=== PATIENT | female | born 1950 | race Caucasian/White ===

== ENCOUNTER 2020-04-27 10:24 | Outpatient (REF) | payer MEDICARE, OTHER, SELFPAY | END 2020-04-27 10:25 | disposition home or self-care (01) | LOC: HO.LAB 10:24 | PROVIDERS: Visit Provider Internal Medicine | DX: Z20.828 Contact with and (suspected) exposure to other viral communicable diseases (principal) | CPT/HCPCS: C9803; U0003 ==

== ENCOUNTER 2025-01-10 11:15 | Emergency (ER) | payer MEDICARE, OTHER, SELFPAY ==
--- OUTSIDE RECORDS SUMMARY | 2025-01-04 23:59 | XMS_ITS | Continuity of Care Document ---
Author Organization [facility] y [address], [address] [place] [address]- Care Team Providers Care Tube Blower Name Role Phone Mikaela MARSH, Peter Primary Care Physician [place] [facility]): [place] 01/04/25 [facility] [address] [place] [address] Drive [address] [place], [place] [address] Attending Physician: Vanda Tong DO Referring Physician: Peter Al NP Encounter Type: Office Visit Allergies, Adverse Reactions, Alerts Substance Criticality Severity Reaction Reaction Severity Status amoxicillin-clavulan ate Vomiting Active diflunisal Anaphylaxis Active Dolobid difficulty breathing Active Augmentin 1 Active 1vomiting Immunizations Given and Recorded Vaccine Date Status Refusal Reason tetanus/diphtheria/pertussis, acel(Tdap) 09/15/23 Given tetanus/diphtheria/pertussis, acel(Tdap) 05/04/16 Given tetanus/diphtheria/pertussis, acel(Tdap) 07/06/13 Recorded influenza virus vaccine, inactivated 05/22/23 Give n influenza virus vaccine, inactivated 05/09/21 Jerome rded influenza virus vaccine, inactivated 02/24/20 Jerome rded influenza virus vaccine, inactivated 02/25/19 Jerome rded influenza virus vaccine, inactivated 03/23/18 Jerome rded influenza virus vaccine, inactivated 02/18/17 Jerome rded influenza virus vaccine, inactivated 03/09/16 Give n influenza virus vaccine, inactivated 03/15/15 Jerome rded influenza virus vaccine, inactivated 04/11/14 Jerome rded SARS-CoV-2 (COVID-19) mRNA BNT-162b2 vac 02/10/21 Recorded SARS-CoV-2 (COVID-19) mRNA BNT-162b2 vac 09/15/20 Recorded SARS-CoV-2 (COVID-19) mRNA BNT-162b2 vac 08/25/20 Recorded zoster vaccine, inactivated 04/17/18 Recorded zoster vaccine, inactivated 12/03/17 Recorded pneumococcal 23-valent vaccine 09/03/17 Recorded pneumococcal 13-valent vaccine 03/15/15 Recorded Medications amLODIPine 10 mg oral tablet 1 tablet = 10 mg, By Mouth, Daily, # 90 tablet, 3 Refills, Maintenance, 02/27/24 10:23:00 AM EDT, Tablet, [facility] , Partial fill upon patient request if the prescription is for a schedule II opioid drug., 160, cm, 01/28/24 10:40:00 EDT, Height, 73, kg, 10/19/23 11:48:00 EDT, Dry Weight Start Date: 02/27/24 Status: Ordered Quantity: 90.0 Unit: tablet Repeat number: 4 Bilateral Juxtafit Knee-high Compression Garments with 2 pairs of liners Bilateral Juxtafit Knee-high Compression Garments with 2 pairs of liners, See Instructions, # 1 kit, Refills 0, Tot. Refills 0, Maintenance, Dx: Lymphedema Use daily up to 23 hours per day., 09/07/23 3:16:00 PM EDT, Supply Start Date: 09/07/23 Status: Ordered Quantity: 1.0 Unit: kit Repeat number: 1 Indications: Other specified soft tissue disorders; buPROPion 300 mg/24 hours (XL) oral tablet, extended release 1 tablet = 300 mg, By Mouth, Every 24 hours, # 90 tablet, 3 Refills, Maintenance, 02/27/24 10:23:00 AM EDT, [facility] , Partial fill upon patient request if the prescription is for a schedule II opioid drug., 160, cm, 01/28/24 10:40:00 EDT, Height, 73, kg, 10/19/23 11:48:00 EDT, Dry Weight Start Date: 02/27/24 Stop Date: 02/21/25 Status: Ordered Quantity: 90.0 Unit: tablet Repeat number: 4 clonazePAM 0.5 mg oral tablet 1 tablet = 0.5 mg, By Mouth, Daily, PRN Anxiety, # 90 tablet, 1 Refills, Maintenance, 11/15/24 1:06:00 PM EDT, Tablet, [id number], Partial fill upon patient request if the prescription is for a schedule II opioid drug., 160, cm, 11/02/24 11:31:00 EDT, Height, 76.36, kg, 10/28/24 10:57:00 EDT, Dry Weight Start Date: 11/15/24 Stop Date: 05/14/25 Status: Ordered Quantity: 90.0 Unit: tablet Repeat number: 2 famotidine 40 mg oral tablet 1 tablet = 40 mg, By Mouth, 2 times a day, # 180 tablet, 3 Refills, Maintenance, 02/07/24 9:51:00 AM EDT, Tablet, [facility] , Partial fill upon patient request if the prescription is for a schedule II opioid drug., 160, cm, 01/28/24 10:40:00 EDT, Height, 73, kg, 10/19/23 11:48:00 EDT, Dry Weight Start Date: 02/07/24 Stop Date: 02/01/25 Status: Ordered Quantity: 180.0 Unit: tablet Repeat number: 4 furosemide 40 mg oral tablet 40 mg, 1, tablet, By Mouth, Daily, # 90 tablet, Refills 3, Tot. Refills 3, Maintenance, 02/07/24 9:52:00 AM EDT, Route to Pharmacy Electronically, [facility] , Partial fill upon patient request if the prescription is for a schedule II opioid drug., 160, cm, 01/28/24 10:40:00 EDT, Height, 73,kg, 10/19/23 11:48:00 EDT, Dry Weight Start Date: 02/07/24 Status: Ordered Quantity: 90.0 Unit: tablet Repeat number: 4 gabapentin 600 mg oral tablet 2 tablet = 1,200 mg, By Mouth, Daily at bedtime, # 180 tablet, 3 Refills, Maintenance, 02/27/24 10:23:00 AM EDT, [facility], 160, cm, 01/28/24 10:40:00 EDT, Height, 73, kg, 10/19/23 11:48:00EDT, Dry Weight Start Date: 02/27/24 Stop Date: 02/21/25 Status: Ordered Quantity: 180.0 Unit: tablet Repeat number: 4 metoprolol 50 mg oral tablet 50 mg, 1, tablet, By Mouth, 2 times a day, # 180 tablet, Refills 3, Tot. Refills 3, Maintenance, 10/06/24 3:14:00 PM EDT, Route to Pharmacy Electronically, [id number], Partial fill upon patient request if the prescription is for a schedule II opioid drug., 160, cm, 10/06/24 14:04:00 EDT, Height, 73.1, kg, 09/23/24 10:07:00 EDT, Dry Weight Start Date: 10/06/24 Stop Date: 10/01/25 Status: Ordered Quantity: 180.0 Unit: tablet Repeat number: 4 modafinil 200 mg oral tablet 1 tablet = 200 mg, By Mouth, 2 times a day, # 180 tablet, 3 Refills, Maintenance, 10/06/24 3:20:00 PMEDT, Tablet, [id number], Partial fill upon patient request if the prescription is for a schedule II opioid drug., 160, cm, 10/06/24 14:04:00 EDT, Height, 73.1, kg, 09/23/24 10:07:00 EDT, Dry Weight Start Date: 10/06/24 Stop Date: 10/01/25 Status: Ordered Quantity: 180.0 Unit: tablet Repeat number: 4 ondansetron 4 mg oral tablet, disintegrating 1 tablet = 4 mg, By Mouth, Daily, for 90 days, # 90 tablet, 3 Refills, Acute 01/22/25 11:15:00 AM EDT, 01/28/24 11:15:00 AM EDT, [facility], Partial fill upon patient request if the prescription is for a schedule II opioid drug., 160, cm, 01/28/24 10:40:00 EDT, Height, 73, kg, 10/19/23 11:48:00 EDT, Dry Weight Start Date: 01/28/24 Stop Date: 01/22/25 Status: Ordered Quantity: 90.0 Unit: tablet Repeat number: 4 Prolia 60 mg/mL subcutaneous solution 1 mL = 60 mg, Subcutaneous Injection, Every 6 months, # 1 mL, 0 Refills, Maintenance, 10/17/24 11:56:00 AM EDT, Solution, Partial fill upon patient request if the prescription is for a schedule II opioid drug. Start Date: 10/17/24 Stop Date: 10/17/25 Status: Ordered Quantity: 1.0 Unit: mL Repeat number: 1 rOPINIRole 1 mg oral tablet 1 tablet = 1 mg, By Mouth, Daily at bedtime, # 90 tablet, 3 Refills, Maintenance, 10/06/24 3:21:00 PMEDT, Tablet, [id number], Partial fill upon patient request if the prescription is for a schedule II opioid drug., 160, cm, 10/06/24 14:04:00 EDT, Height, 73.1, kg, 09/23/24 10:07:00 EDT, Dry Weight Start Date: 10/06/24 Stop Date: 10/01/25 Status: Ordered Quantity: 90.0 Unit: tablet Repeat number: 4 sertraline 100 mg oral tablet 2 tablet = 200 mg, By Mouth, Daily, # 180 tablet, 3 Refills, Maintenance, 12/06/23 5:44:00 PM EDT, [facility] , 160, cm, 11/19/23 10:08:00 EDT, Height, 73, kg, 10/19/23 11:48:00 EDT, Dry Weight Start Date: 12/06/23 Stop Date: 11/30/24 Status: Ordered Quantity: 180.0 Unit: tablet Repeat number: 4 valsartan 80 mg oral tablet 80 mg, 1, tablet, By Mouth, Daily, # 90 tablet, Refills 3, Tot. Refills 3, Maintenance, 05/04/24 12:02:00 PM EST, Route to Pharmacy Electronically, [facility] #[id number], Partial fill upon patient request if the prescription is for a schedule II opioid drug., 160, cm, 05/04/24 10:41:00 EST, Height, 73, kg, 10/19/23 11:48:00 EDT, Dry Weight Start Date: 05/04/24 Stop Date: 04/29/25 Status: Ordered Quantity: 90.0 Unit: tablet Repeat number: 4 Vitamin D3 5000 intl units oral tablet 1 tablet = 5,000 International_Units, By Mouth, Daily, # 60 tablet, 0 Refills, Maintenance, 10/18/2509:04:00 AM EDT, Tablet, [facility] #[id number], Partial fill upon patient request if the prescription is for a schedule II opioid drug., 160, cm, 10/17/24 14:52:00 EDT, Height, 77.1, kg, 10/11/24 13:13:00 EDT, Dry Weight Start Date: 10/18/24 Stop Date: 12/17/24 Status: Ordered Quantity: 60.0 Unit: tablet Repeat number: 1 Problem List Condition Confirmation Course Effective Dates Status Health St atus Informant Hyperplastic colonic polyp 1 Confirmed 03/06/19 Active Chronic kidney disease, stage 3a 2 Confirmed Active CAD in [place] artery Confirmed Active GERD (gastroesophageal reflux disease) Confirmed Active RANDY (generalized anxiety disorder) Confirmed Active Hx of non-ST elevation myocardial infarction (NSTEMI) Confirmed Active HTN (hypertension) Confirmed Active Inclusion body myositis Confirmed Active Interstitial lung syndrome Confirmed Active 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 Confirmed Active RAINA (obstructive sleep apnea) Confirmed Active Restless leg syndrome Confirmed Active Leg swelling Confirmed Active 1repeat screening colonoscopy in 2028 2Per chart review meeting GFR criteria Social History Social History Type Response Smoking Status Former smoker; Other : Quit 1993 without relapse; entered on: 02/26/16 Sex Sex Representation Female (finding) Patient Care team information Care Team Personnel Name: Salomon Kathleen Position: [facility] Onco RN Member Role: Primary Care Nurse Name: Lila Chowdhury RN Position: [facility] AMB Nurse Member Role: Primary Care Nurse Name: Sakina Solis RN Position: [facility] RN Member Role: Primary Care Nurse Name: Veronica Christopher RN Position: [facility] RN Member Role: Primary Care Nurse Name: Cecily Farfan RN Position: [facility] RN Member Role: Primary Care Nurse Name: Christina Castañeda RN Position: [facility] RN Member Role: Primary Care Nurse Name: Una Calvo Position: [facility] Outreach Member Role: Lifetime Consulting Physician Name: Liz Howell RN Position: [facility] SN RN Member Role: Primary Care Nurse Name: Amrit Pressley RN Position: [facility] RN Member Role: Primary Care Nurse Name: Radhika Pritchett RN Position: [facility] RN Member Role: Primary Care Nurse Name: Georgette Wilcox RN Position: [facility] Hospital Die Mounter Member Role: Primary Care Nurse Name: Peter Al NP Position: [facility] PCO Associate Professional Member Role: PCP Address: [address] [place] [address] Primary Care [place], [place] [address] Telecom: Name: Mariaelena Lopez RN Position: [facility] AMB Nurse Member Role: Primary Care Nurse Name: Ky Mackay RN Position: [facility] SN RN Member Role: Primary Care Nurse Name: Nancy Lerma RN Position: [facility] RN Member Role: Primary Care Nurse Name: Ellen Enriquez RN Position: [facility] Onco RN Member Role: Primary Care Nurse Name: Nora Monk RN Position: [facility] RN Member Role: Primary Care Nurse Name: Josué Winn RN Position: [facility] SN RN Member Role: Primary Care Nurse Name: Janet Oliva RN Position: [facility] AMB Nurse Member Role: Primary Care Nurse Name: Antoinette Leyva RN Position: [facility] RN Member Role: Primary Care Nurse Name: Antoinette Albright RN Position: [facility] RN Member Role: Primary Care Nurse Care Team Related Persons Name: AUSTIN BAGLEY Name: FELYMARCOSJOVITA Name: REYES JOAQUIN Insurance Providers Guarantor name: SALOMON SCHMID Health Plan Information #: 1 Payer: MEDICARE B Payer Identifier: NA Member Number: [id number] Group Number: NA Subscriber Identifier: [id number] Relationship to Subscriber: self Coverage Type: NA Coverage Verification Date: NA Telecom: NA Address: Health Plan Information #: 2 Payer: [facility] Payer Identifier: Member Number: [id number] Group Number: Subscriber Identifier: [id number] Relationship to Subscriber: self Coverage Type: [employer] [place] () Coverage Verification Date: NA Telecom: NA Address: NA
--- NOTE | ~2025-01-10 | CT_ITS ---
EXAMINATION: CT ABDOMEN PELVIS WITH IV CONTRAST HISTORY: lower abd pain COMPARISON: There are no prior studies for available comparison. TECHNIQUE: CT scan of the abdomen and pelvis was performed following administration of 85 mL Omnipaque 350 using standard departmental protocol. Coronal and sagittal reformatted images were generated and reviewed. Oral contrast material was not administered at the request of the referring physician. This CT exam was performed with one or more of the following dose reduction techniques: automated exposure control, adjustment of the mA and/or kV according to patient size, use of iterative reconstruction technique. DLP: 557 mGy-cm FINDINGS: LOWER CHEST: There is mild dependent atelectasis at the lung bases. There is no pleural effusion. CARDIOVASCULATURE: The heart is normal in size. There is no pericardial effusion. LIVER: The liver is normal in size and contour. No liver mass is identified. The hepatic and portal veins are patent. GALLBLADDER / BILE DUCTS: The gallbladder is unremarkable. There is no intra or extrahepatic biliary ductal dilatation. SPLEEN: The spleen is enlarged. No focal splenic lesion is identified. PANCREAS: The pancreas is unremarkable in appearance. ADRENAL GLANDS: Within normal limits. KIDNEYS/RETROPERITONEUM: No renal calculi are identified. There is no hydronephrosis. No renal masses are identified. LYMPH NODES: No abdominal or pelvic lymphadenopathy. VASCULATURE: The abdominal aorta demonstrates atherosclerotic calcification, but is normal in caliber. MESENTERY/PERITONEUM: No free fluid. No masses. There is no free intraperitoneal gas. STOMACH: There is a small to moderate hiatal hernia. The remainder of the stomach is collapsed. SMALL BOWEL: The small bowel is normal in caliber. COLON: There is diverticulosis and moderate wall thickening of the sigmoid colon. No definite pericolonic inflammatory stranding is seen to suggest diverticulitis. APPENDIX: The appendix is not seen, however no inflammatory changes are seen adjacent to the cecum. URINARY BLADDER/PELVIC ORGANS: The urinary bladder is unremarkable. The uterus is unremarkable. BONES / SOFT TISSUES: There is a mild compression deformity of L1 which is likely chronic. CT/CT abdomen pelvis w IV con IMPRESSION: 1. Sigmoid diverticulosis and moderate wall thickening without definite evidence of diverticulitis. An underlying mass is not excluded. Sigmoidoscopy is suggested if this has not recently been performed. 2. Small to moderate hiatal hernia. 3. Splenomegaly. Electronically signed by: Ziggy Fowler MD 01/10/2025 03:15 PM EDT RP
[2025-01-10 11:38] VITALS: BP 206/79; PULSE 56; RESP 16; TEMP 36.1; O2SAT 96
--- NOTE | 2025-01-10 11:38 | ED.ABDPAIN ---
HPI - Abdominal Pain General Chief Complaint: Abdominal Pain Stated Complaint: Abd pain Time Seen by Provider: 01/10/25 13:35 Source: patient and old records reviewed Mode of arrival: ambulatory Limitations: no limitations History of Present Illness ED Provider: KAMARI IZAGUIRRE narrative: 74 yo female with PMH of umbilical hernia repair, inclusion body myositis, HTN here with c/o 3 days of bloating, decreased appetite, waves of pain in lower abdomen and smaller size stool. No fevers, no GIB symptoms. She cannot remember the last time she had a colonoscopy. She states she has passed gas. No change in meds or diet. She has never had this before. MD elicited complaint: abdominal pain Pertinent past history: none Onset (ago): day(s) (3) Pain Consistency: intermittent Location: suprapubic and pelvis Severity: moderate Quality: cramping and aching Radiation: none Migration to: no migration Exacerbating factors: eating Relieving factors: nothing Associated symptoms: nausea and constipation Related Data Previous Rx's ?Medication ?Instructions ?Recorded hydrocodone 5 mg-acetaminophen 325 1 tab PO Q6H PRN pain #10 tabs 01/10/25 mg tablet levofloxacin 750 mg tablet 750 mg PO DAILY #10 tabs 01/10/25 metronidazole 500 mg tablet 500 mg PO BID #10 tabs 01/10/25 Allergies Allergy/AdvReac Type Severity Reaction Status Date / Time amoxicillin (From Augmentin) Allergy Mild Vomiting Verified 01/10/25 11:43 clavulanic acid (From Allergy Mild Vomiting Verified 01/10/25 11:43 Augmentin) Review of Systems Review of Systems Constitutional : No Weight loss, No Fever, No Chills ENT/Mouth : No sore throat, No Rhinorrhea Eyes: No Swelling, No Redness Cardiovascular : No Chest Pain, No SOB, NoEdema Respiratory : No Cough, No Sputum, No Wheezing Gastrointestinal : Positive Nausea, no Vomiting, no Diarrhea, positive abdominal Pain, No Hematochezia, No Melena Genitourinary : No Dysuria, No Urinary Frequency, No Hematuria, No Urgency Musculoskeletal : No joint pain, No Myalgias, No Joint Swelling Skin : No Skin Lesions, No rash Neuro : No Weakness, No Numbness, No Dizziness, No Headache All other systems reviewed and are negative. [facility] Past Medical History Attestation statement: The following information was validated with the patient. Source: old records reviewed Medical History HTN (hypertension) IBM (inclusion body myositis) Social History Social History (Updated 01/10/25 @ 13:57 by Tania Arrieta DO) Alcohol intake: current Alcohol intake frequency: a few times a month Patient Tobacco Use Status: Tobacco use Unknown Smoked in Last 30 Days: No Use of substances other than those prescribed or required for medical reasons: No Advance Directives: Yes Advance Directives Information Provided: Yes Advance Directives on File: No Physical Exam ED Vital Signs: Vital Signs - 24 hr 01/10/25 11:38 01/10/25 14:23 Temperature 97 F Pulse Rate 56 50 Respiratory Rate 16 18 Blood Pressure 206/79 H 137/43 L Pulse Oximetry 96 96 Oxygen Delivery Method Room Air Room Air BMI result Body Mass Index 30.0 Appearance: Alert. Oriented X3. No acute distress. Eyes: Pupils equal, round and reactive to light. ENT: Pharynx normal. Neck: Normal inspection. Neck supple. CVS: Normal heart rate and rhythm. Pulses normal. Respiratory: No respiratory distress. Breath sounds normal. Abdomen: soft but appears distended she has lower abd ttp bilaterally but no rebound or guarding Skin: Skin warm and dry. Normal skin color. Normal skin turgor. Extremities: No lower extremity edema. No calf ttp Neuro: Oriented X 3. No motor deficit. No sensory deficit. CN2-12 intact Course Course Course Narrative: This is a Rapid Medical Examination (RME) performed by Ailyn Eckert PA-C in triage. Full HPI, ROS, assessment and treatment plan per primary provider in the Main ED. 74 yo female with history of inclusion body myositis (IBM), HTN, depression who presents to the ER for evaluation of 3 days of lower abdominal pain and cramping. Relieved with BMs but only having small BMs. reports decreased UOP. poor appetite. no vomiting, chest pain, sob or fevers. her weakness is chronic and unchanged, hx multiple falls, not on anticoagulation. abx exam soft with left sided fullness, no RLQ or LLQ tenderness. +BS x4 Plan: labs, UA, imaging per primary provider Reevaluation(s) Reevaluation #1: urinated and didn't give urine sample denies odor, dysuria, frequency Medical Decision Making Medical Decision Making MDM Narrative: 74 yo female with PMH of umbilical hernia repair, inclusion body myositis, HTN here with c/o lower abdominal pain with poor appetite at this time will need labs, UA, CT scan for mass/diverticular ds/obstruction. Differential Diagnosis Differential Diagnoses: The differential diagnosis associated with the presentation includes mass/diverticular ds/obstruction. Admission/Observation Consideration of admission/observation: Escalation of care including admission/observation considered labs reassuring, VS stable, no vomiting here able to tolerate PO can trial oral abx and pain control and refer to PCP for GI work up given her abnormal CT scan findings. Lab Data [facility] Lab Attestation statement: I reviewed the patient's lab results. 01/10/25 11:50 01/10/25 11:50 Labs: Lab Results 01/10/25 Range/Units 11:50 WBC 7.8 (4.8-10.8) X10*3/uL RBC 3.98 L (4.20-5.50) X10*6/uL Hgb 12.2 (12.0-16.0) g/dl Hct 35.5 L (37.0-47.0) % MCV 89.2 (80.0-98.0) fL MCH 30.7 (27.0-33.0) pg MCHC 34.4 (31.0-35.0) g/dl RDW 12.2 (11.0-16.0) % Plt Count 166 (160-400) X10*3/uL MPV 9.1 L (9.4-12.3) fL Immature Gran % (Auto) 0.4 (0.0-0.4) % Neut % (Auto) 70.9 (45-73) % Lymph % (Auto) 17.4 L (20-40) % Fountain % (Auto) 9.3 (2-11) % Eos % (Auto) 1.7 (0-4) % Baso % (Auto) 0.3 (0-2) % Lymph # (Auto) 1.4 (1.2-4.9) X10*3/uL Fountain # (Auto) 0.7 (0.1-1.2) X10*3/uL Eos # (Auto) 0.1 (0.0-0.4) X10*3/uL Baso # (Auto) 0.0 (0.0-0.2) X10*3/uL Abs Immat Gran (auto) 0.03 (0.00-0.03) X10*3/uL Absolute Neuts (auto) 5.5 (2.0-8.3) x10*3/uL Absolute Nucleated RBC 0.000 (0.0-0.012) X10*3/uL Nucleated RBC % (auto) 0.0 (0.0-0.2) /100WBC Sodium 134 L (135-145) mmol/L Potassium 4.6 (3.3-5.1) mmol/L Chloride 101 (96-108) mmol/L Carbon Dioxide 26 (22-29) mmol/L Anion Gap 12 (12-20) BUN 16 (9-16) mg/dL Creatinine 0.62 (0.5-1.4) mg/dL Estim Creat Clear Calc 81.1 Estimated GFR > 60 Random Glucose 109 (60-115) mg/dL Calcium 8.4 (8.4-10.2) mg/dL Magnesium 2.5 (1.6-2.6) mg/dL Total Bilirubin 0.6 (0.0-1.0) mg/dL Direct Bilirubin 0.2 (0.0-0.5) mg/dL AST 55 H (5-31) U/L ALT 76 H (0-31) U/L Alkaline Phosphatase 81 (39-117) U/L Total Protein 6.4 L (6.5-8.0) g/dL Albumin 4.3 (3.5-5.0) g/dL Independent Interpretation I performed an independent interpretation of an: CT Scan (inflammation near sigmoid colon) Radiology Impression Discussion of test interpretation with radiology: I have reviewed the radiologist's reading. External Record Review External record reviewed: Outpatient record Prescription Management I considered prescription management with: Pain Medication, Antibiotic and Other Medications Administered Discontinued Medications Generic Name Dose Route Start Last Admin Trade Name Freq PRN Reason Stop Dose Admin Iohexol 100 ml 01/10/25 15:07 01/10/25 15:08 Iohexol 350 Mg/Ml 100 Ml Infus..Btl IV 01/10/25 15:08 85 ml ONCE ONE Administration Morphine Sulfate 4 mg 01/10/25 13:35 01/10/25 13:48 Morphine Sulfate 4 Mg/Ml Cartridge IVPUSH 01/10/25 13:36 4 mg ONCE ONE Administration Protocol Ondansetron HCl 4 mg 01/10/25 13:35 01/10/25 13:49 Ondansetron Hcl 4 Mg/2 Ml Vial IVPUSH 01/10/25 13:36 4 mg ONCE ONE Administration Critical Care Time Critical Care Time Critical Care Time: Yes Total Critical Care Time: 35 Attestation: IV morphine for pain with improvement in symptoms, review of records, review of labs and CT scan, repeat assessments I attest to this time spent taking care of the patient Discharge Plan Discharge Clinical Impression: Abdominal pain Patient Disposition: Home, Self-Care Instructions: Abdominal Pain (ED) Additional Instructions: your labs are reassuring your CT Scan shows inflammation near the sigmoid colon we will treat with antibiotics and pain control return for worsening pain, fevers, unable to eat or drink, bloody stools or any other concerns while on the antibiotic monitor for any signs of tendon pain limit exercising flagyl needs to be taken with food and avoid alcohol you need to see a GI doctor to make sure there is no underlying mass. CT/CT abdomen pelvis w IV con IMPRESSION: 1. Sigmoid diverticulosis and moderate wall thickening without definite evidence of diverticulitis. An underlying mass is not excluded. Sigmoidoscopy is suggested if this has not recently been performed. 2. Small to moderate hiatal hernia. 3. Splenomegaly. Prescriptions: New metronidazole 500 mg tablet 500 mg PO BID Qty: 10 0RF hydrocodone-acetaminophen 5-325 mg tablet 1 tab PO Q6H PRN (Reason: pain) Qty: 10 0RF Rx Instructions: partial fill okay; Partial Fill upon patient request. levofloxacin 750 mg tablet 750 mg PO DAILY Qty: 10 0RF Referrals: [facility] [Provider Group, Gastroenterology] Referral Note: call to schedule Print Language: Kazakh
[2025-01-10 12:02] LABS: MANUAL DIFF FLAG NO
[2025-01-10 12:03] LABS: Hematocrit 35.5 % (37.0-47.0); Hemoglobin 12.2 g/dl (12.0-16.0); Imm Gran Abs Auto 0.03 X10*3/uL (0.00-0.03); Imm Gran Pct Auto 0.4 % (0.0-0.4); Lymphocytes Absolute Auto 1.4 X10*3/uL (1.2-4.9); Mean Corpuscular HGB Conc 34.4 g/dl (31.0-35.0); Mean Corpuscular Hemoglobin 30.7 pg (27.0-33.0); Mean Corpuscular Volume 89.2 fL (80.0-98.0); NRBC Abs Auto 0.000 X10*3/uL (0.0-0.012); NRBC Pct Auto 0.0 /100WBC (0.0-0.2); Platelet Count 166 X10*3/uL (160-400); Red Blood Count 3.98 X10*6/uL (4.20-5.50); White Blood Count 7.8 X10*3/uL (4.8-10.8)
[2025-01-10 12:22] LABS: Alanine Aminotransferase 76 U/L (0-31); Albumin Level 4.3 g/dL (3.5-5.0); Alkaline Phosphatase 81 U/L (39-117); Anion Gap 12 (12-20); Aspartate Amino Transferase 55 U/L (5-31); Blood Urea Nitrogen 16 mg/dL (9-16); Calcium 8.4 mg/dL (8.4-10.2); Carbon Dioxide 26 mmol/L (22-29); Chloride 101 mmol/L (96-108); Creatinine Clr Calc Pharmacy 81.1; Estimated Glomerular Filt Rate > 60; Magnesium 2.5 mg/dL (1.6-2.6); Potassium 4.6 mmol/L (3.3-5.1); Sodium 134 mmol/L (135-145); Total Protein 6.4 g/dL (6.5-8.0)
[2025-01-10 14:23] VITALS: BP 137/43; PULSE 50; RESP 18; O2SAT 96
--- OUTSIDE RECORDS SUMMARY | 2025-01-10 14:52 | XMS_ITS | Clinical Summary ---
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 Active pantoprazole (PROTONIX) 40 MG tablet Take 40 mg by mouth daily. Active risperiDONE (RISPERDAL) 0.25 MG tablet Take 0.25 mg by mouth 2 (two) times a day. Active memantine (NAMENDA) 10 MG tablet Take 10 mg by mouth 2 (two) times a day. Active methotrexate 15 MG tablet Take 15 mg by mouth once a week. Active predniSONE (DELTASONE) 5 MG tabletIndicatio ns:taking 1.5 tablets (7.5 mg) by mouth daily Take 5 mg by mouth daily with breakfast. Indications: taking 1.5 tablets (7.5 mg) by mouth daily Active metoprolol tartrate (LOPRESSOR) 50 MG tablet Take 50 mg by mouth 2 (two) times a day. Active sertraline (ZOLOFT) 50 MG tablet Take 100 mg by mouth daily. Active aspirin 81 MG EC tablet Take 81 mg by mouth daily. Active folic acid (FOLVITE) 1 MG tablet Take 1 mg by mouth daily. Active gabapentin (NEURONTIN) 600 MG tablet Take 600 mg by mouth daily. Active hydroCHLOROthia zide (MICROZIDE) 12.5 mg capsule Take 12.5 mg by mouth daily. Active calcium carbonate 500 mg (200 mg elemental) chewable tablet Take 1 tablet by mouth daily. Active nitroglycerin (NITROSTAT) 0.[address] 0.4 mg under the tongue every 5 (five) minutes as needed for chest pain. Active ALPRAZolam (XANAX) 0.25 MG tablet Take 0.25 mg by mouth nightly at bedtime as needed for sleep. Active butalbital-acet aminophen-caffe ine (FIORICET, ESGIC) 50-325-40 mg per tablet Take 1 tablet by mouth every 4 (four) hours as needed for pain (specific location in comments). Active ketorolac (ACULAR LS) 0.4 % Drop Place 1 drop into each eye 4 (four) times a day. Active ofloxacin (FLOXIN) 0.3 % otic solution 5 drops by Each Ear route daily. Active sulfacetamide-p rednisoLONE (BLEPHAMIDE) ophthalmic ointment Place 0.5 inches into each eye 4 (four) times a day. Active rOPINIRole (REQUIP XL) 2 MG 24 hr tablet Take 2 mg by mouth nightly at bedtime. Active amLODIPine (NORVASC) 10 MG tablet Take 10 mg by mouth. 01/31/2022 Active losartan (COZAAR) 100 MG tablet Take 100 mg by mouth. 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 Not on tila e 10/19/2022 Are you concerned about learning? Not on file 10/19/2022 No 10/19/2022 No 10/19/2022 Digital Access Answer Date Recorded No 11/02/2022 No 11/02/2022 Reliable internet access at home? Not on file 11/02/2022 Device with a working camera? Not on file Comments Unknown Sex and Gender Information Value Date Recorded Sex Assigned at Not on file Legal Sex Female 5:09 PM EST Gender Identity Not on file Sexual Orientation Not on file Last Filed Vital Signs Vital Sign Reading Time Taken Comments Blood Pressure 182/76 07/20/2023 3:38 PM EST Pulse 59 07/20/2023 3:38 PM EST Temperature 36.4 C (97.6 F) 07/20/2023 3:37 PM EST Respiratory Rate 16 07/20/2023 3:37 PM EST Oxygen Saturation 94% 07/20/2023 3:38 PM EST Inhaled Oxygen Concentration - - Weight 73.9 kg (163 lb) 07/20/2023 3:37 PM EST Height 160 cm (5' 2.99 ) 07/20/2023 3:37 PM EST Body Mass Index 28.88 07/20/2023 3:37 PM EST Plan of Treatment Health Maintenance Due Date Last Done Comments CREATININE LEVEL 1950 LIPID PANEL 1950 POTASSIUM LEVEL 1950 SMOKING Hx and SMOKELESS TOBACCO SCREENING 1963 HEPATITIS C SCREENING 01/16/1968 MAMMOGRAM 1990 COLOGUARD 1995 COLONOSCOPY 1995 COLORECTAL CANCER SCREENING 1995 FIT TEST 1995 FOBT 1995 SIGMOIDOSCOPY 1995 VIRTUAL COLONOSCOPY 1995 RSV VACCINE (1 - Risk 60-74 years 1-dose series) 2010 OSTEOPOROSIS SCREENING INITI AL (ONE-TIME) 2015 DEPRESSION SCREENING 12/24/2023 12/23/2022 COVID-19 VACCINE (4 - 2023-2 5 season) 2024 02/10/2021, 09/15/2020, 08/25/2020 Adult Td,Tdap Booster 05/04/2026 05/04/2016 , 07/06/2013 PNEUMOCOCCAL VACCINES (50+ years) Completed 09/03/2017, 03/15/2015 ZOSTER VACCINES Completed 04/17/2018, 12/03/2017 HEPATITIS A VACCINES Aged Out No long er eligible based on patient's age to complete this topic HIB VACCINES Aged Out No longer eligi ble based on patient's age to complete this topic MENINGOCOCCAL VACCINES (ACWY) Aged Out No longer eligible based on patient's age to complete this topic MENINGOCOCCAL VACCINES (B) Aged Out N o longer eligible based on patient's age to complete this topic Medical Devices Not on file Insurance MEDICARE PART A & B [facility] Address: [facility] ATTN:[facility] [address] [address] [place] [address] MEDICARE PART A & B [facility] [address] MEDICARE PART A & B [facility] Address: [facility] ATTN:[facility] CLAIMS [id number] [place] [phone] MEDICARE PART A & B [facility] [address] MEDICARE PART A & B [facility] Address[facility] ATTN:[facility] CLAIMS [address] [address] [place] [address] MEDICARE PART A & B [facility] [address] MEDICARE PART A & B [facility] [address] MEDICARE PART A & B [facility] [address] MEDICARE PART A & B [facility] [address] Care Teams Photoengraving Machine Operator/Tender Relationship Specialty Start Date End Date Peter Al NP [address] [place] [id number] PCP - General Nurse Practitioner 08/27/22 Additional Source Comments The information contained in this document represents components of the legal health record. It is not the complete legal health record.[facility]
--- OUTSIDE RECORDS SUMMARY | 2025-01-10 14:52 | XMS_ITS | Clinical Summary ---
Author Organization [facility] it Address [address] [place] [address] Care Team Providers Care Highway Maintenance Supervisor Name Role Phone Bonny Vernonharshal Primary Care Provider [phone] Allergies Active Allergy Reactions Criticality Noted Date Comments Amoxicillin-Pot Clavulanate 11/20/19 23 vomiting Diflunisal Swelling,Wheezing 07/06/2013 Throat swelled Medications triamcinolone (KENALOG) 0.1 % cream APPLY THIN LAYER TOPICALLY TO THE AFFECTED AREA TWICE DAILY 3 Active metoprolol tartrate (LOPRESSOR) 50 mg tablet Take 1 Tablet by mouth. 6 Active methylPREDNISolone (MEDROL) 8 mg tablet TAKE 6 TABLET BY MOUTH EVERY DAY 3 Active methocarbamoL (ROBAXIN) 750 mg tablet TAKE 2 TABLETS BY MOUTH THREE TIMES DAILY FOR 7 DAYS 3 Active furosemide (LASIX) 40 mg tablet Take 1 tablet (40 mg total) by mouth 1 (one) time each day. Active modafiniL (PROVIGIL) 200 mg tablet Take 200 mg by mouth daily. Active gabapentin (NEURONTIN) 600 mg tablet TAKE 2 TABLETS BY MOUTH AT BEDTIME FOR RESTLESS LEG SYNDROME 2 Active famotidine (PEPCID) 20 mg tablet Take 1 tablet (20 mg total) by mouth 2 (two) times a day. 2 Active cetirizine (ZyrTEC) 10 mg tablet Take 1 tablet (10 mg total) by mouth 1 (one) time each day. 1 Active butalbital-acetami nophen-caffeine (FIORICET, ESGIC) 50-325-40 mg per tablet Take 1 tablet by mouth every 4 hours as needed for Pain. 1 Active sertraline (ZOLOFT) 100 mg tablet 2 po qam 1 Active clonazePAM (KlonoPIN) 0.5 mg tablet 1/2-1 po bid prn anxiety or insomnia 1 Active pantoprazole (PROTONIX) 20 mg EC tablet Take 1 tablet (20 mg total) by mouth 1 (one) time each day. 1 Active methotrexate, PF, 22.5 mg/0.45 mL auto-injector Inject into the skin. Active rOPINIRole (REQUIP) 0.25 mg tablet Take 0.25 mg by mouth 3 times daily. Active amLODIPine (NORVASC) 10 mg tablet Take 10 mg by mouth daily. Active losartan (COZAAR) 50 mg tablet 100 mg. 0 Active ondansetron ODT (ZOFRAN-ODT) 4 mg disintegrating tablet Take 1-2 Tabs by mouth every 8 hours as needed for Nausea for up to 7 days. 0 Active folic acid (FOLVITE) 1 mg tablet Take 1 tablet (1,000 mcg total) by mouth 1 (one) time each day. 9 Active docusate sodium (COLACE) 100 mg tablet Take by mouth. Active nitroglycerin (NITROSTAT) 0.[address] 1 Tab under the tongue every 5 minutes as needed for Chest pain. 9 Active reservoir inhalation (INSPIREASE) device For use with inhalers 8 Active halobetasol (ULTRAVATE) 0.05 % ointment Apply daily or twice daily, to elbows and knees when needed. Goal for on weekends only. Not to face or skin folds 6 Active metoprolol succinate (TOPROL-XL) 50 mg 24 hr tablet Take 1 tablet (50 mg total) by mouth 2 (two) times a day. 6 Active aspirin 81 mg EC tablet Take 81 mg by mouth daily. Active calcium carbonate-vitamin D 500 mg-5 mcg (200 unit) per tablet Take 1 tablet by mouth 2 times daily (with meals). 6 Active MULTIVITAMIN ORAL Take by mouth. Active ascorbic acid (VITAMIN C) 500 mg tablet Take 500 mg by mouth daily. 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 CPKs elevated in 600-800 range. Lower extremity weakness. Pravastatin discontinued May 2018. EMG showed myopathic process. Muscle biopsy 06/26: Right rectus femoris muscle showed segmental degeneration and regeneration. Focal mononuclear cells were seen. No inclusion bodies. Prednisone started 07/27. 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 Overview (07/11/2024): Seen on CT of abdomen 10/31/08 and 02/07/09, with nonspecific shotty mesenteric lymph nodes Hiatal hernia 08/22/2013 Overview (07/11/2024): Mild, seen on abd CT 10/2008 Maxillary sinus cyst 08/22/2013 Overview (07/11/2024): 1.4 cm left, on MRI Hypercholesteremia 07/06/2013 Hypertension 07/06/2013 Migraine headache 07/06/2013 Overview (07/11/2024): MRI 05/30/09 Small vessel angiopathy bilateral frontal region, Mitral regurgitation and aortic stenosis 014 Overview (07/11/2024): Mild to mod MR , mild AR on echo 07/10/10, EF 62% Osteopenia 07/06/2013 Psoriasis 07/06/2013 Immunizations Name Administration Dates Next Due Influenza trivalent, 0.5mL ( Fluad) 65yo and older 05/09/2021,03/23/2018,02/18/2017 Influenza trivalent, 0.5mL, preservative free (Fluarix; FluLaval; Fluzone) ages 6mo and older (Afluria) 3 years and older 03/15/2015,04/11/2014 Songvice SARS-CoV-2 COVID-19, mRNA, LNP-S, preservative free 09/15/2020,08/25/2020 Pneumococcal conjugate 13 va lent (Prevnar 13, PCV13) 2mo and older 03/15/2015 Pneumococcal polysaccharide 23 valent (Pneumovax 23) 2yo and older 09/03/2017 Tdap Tetanus diptheria acell ular pertussis (Boostrix; Adacel) 7yo and older 07/06/2013 Zoster recombinant (Shingrix ) 19yo and older 04/17/2018 Surgical History Surgery Date Site/Laterality Comments CARDIAC CATHETERIZATION 03/30/2008 PROCEDURE: HISTORICAL CARDIAC CATH; COMMENT: 25% prox LAD, 10% LMCA ostial, EF 60%, COLONOSCOPY PROCEDURE: HISTORICAL COLONOSCOPY LUMBAR LAMINECTOMY PROCEDURE: HISTORICAL LUMB LAMINECTOMY OTHER SURGICAL HISTORY PROCEDURE: HISTORY OTHER; COMMENT: sling OTHER SURGICAL HISTORY PROCEDURE: HISTORY OTHER; COMMENT: basal cell x 5, shoulder and back. CERVICAL BIOPSY W/ LOOP ELECTRODE EXCISION 2009 PROCEDURE: [place] CONIZATION CERVIX W/WO D&C RPR ELTRD EXC; COMMENT: Paps until 2029 OTHER SURGICAL HISTORY PROCEDURE: HISTORICAL MELANOMA OTHER SURGICAL HISTORY 2006 PROCEDURE: ---- OTHER ----; COMMENT: vaginal adhesion/septum removal HERNIA REPAIR 01/18/2021 PROCEDURE: HISTORICAL HERNIA REPAIR/UMB OTHER SURGICAL HISTORY 01/18/2021 Left PROCEDURE: HISTORICAL PARTIAL UNILATERAL MASTECTOMY Medical History Medical History Date Comments Insomnia 09/12/2014 DX:Insomnia RAINA on CPAP 09/12/2014 DX:RAINA on CPAP RLS (restless legs syndrome) 09/12/2014 DX: RLS (restless legs syndrome) Basal cell carcinoma of skin 03/05/2015 DX: Basal cell carcinoma of skin H/O alcohol abuse 03/15/2015 DX:H/O alcohol abuse Anemia of chronic disease 05/07/2015 DX:Ane eric of chronic disease; COMMENT: Saw heme History of other specified conditions presenting hazards to health DX:History of other specifie d conditions presenting hazards to health; COMMENT: skin ca basal cell NSTEMI (non-ST elevated myoc ardial infarction) ([facility]/HCC V24, CMS/HCC V28) 03/26/2016 DX:NSTEMI (non-ST elevated m yocardial infarction) ([facility]) History of basal cell carcinoma 03/05/2015 DX:History of basal cell carcinoma; COMMENT: BCC 02/17 right chest and left posterior thorax 07/20 right anterior shoulder and left upper arm Full code status 11/11/2018 DX:Full code st atus; COMMENT: MOLST form completed 11/11/2018 Cardiopulmonary resuscitation - attempt resuscitation Ventilation for a patient in respiratory distress - intubate and ventilate and use noninvasive ventilation (CPAP) Transfer to hospital - transfer to hospital Dialysis - dialysis okay Artificial nutrition - no artificial nutrition Artificial hydration - use artificial hydration Colon polyp 03/12/2019 DX:Colon polyp; COMMENT: 2019 Internal hemorrhoids 07/26/2020 DX:Internal hemorrhoids Breast cancer ([facility]/HCC V24, CMS/HCC V28) 01/14/2021 DX:Breast cancer ([facility]); COMM ENT: DCIS left 01/2021 Breast cancer ([facility]/HCC V24, CMS/HCC V28) 01/14/2021 DX:Breast cancer (HCC) Major depression 03/09/2015 DX:Major depres corinna Family History Medical History Relation Name Comments Other cancer Father oral. aunt with colon and brain ca and stomach/basal skin cancer Diabetes Mother Other cancer Uncle stomach Breast cancer Neg Hx Relation Name Status Comments Father Mother Uncle Social History Tobacco Use Types Packs/Day Years Used Date Smoking Tobacco: Former Cigarettes Q uit: 06/08/1993 Smokeless Tobacco: Never Alcohol Use Standard Drinks/Week Comments Yes 0 (1 standard drink = 0.6 oz pur e alcohol) Comments Unknown Sex and Gender Information Value Date Recorded Sex Assigned at Not on file Legal Sex Female 4:46 PM EST Gender Identity Not on file Sexual Orientation Not on file Obstetrics History Last Filed Vital Signs Vital Sign Reading Time Taken Comments Blood Pressure 147/59 12/30/2023 3:30 PM EDT Pulse 59 12/30/2023 3:30 PM EDT Temperature - - Respiratory Rate - - Oxygen Saturation - - Inhaled Oxygen Concentration - - Weight 79.8 kg (176 lb) 12/30/2023 3:30 PM EDT Height - - Body Mass Index - - Plan of Treatment Upcoming Encounters Date Type Department Care Team (Late st Contact Info) Description 02/08/2025 3:30 PM EDT Office Visit Breast Care [facility] [address] [place] [id number] Alesha Fierro MD [address] [place] [address] Health Maintenance Due Date Last Done Comments Zoster Vaccines (2 of 2) 06/12/2018 04/17/2018 Breast Cancer Screening 11/19/2019 11/19/19 18, 05/18/2017, 11/21/2016, Additional history exists COVID-19 Vaccine (3 - Pfizer risk series) 10/13/2020 09/15/2020, 08/25/2020 Falls Risk Assessment 05/17/2022 Social Influencers of Health Screening 05/17/2022 Hypertension/CHF/CAD Annual BMP Blood Test 05/18/2022 05/10/2021 DTaP,Tdap,and Td Vaccines (2 - Td or Tdap) 07/06/2023 07/06/2013 Medicare Annual Wellness Visit 10/25/2023 10/24/2022 Depression Screening 06/08/2024 RSV Immunization Adult Patients (1 - 1-dose 75+ series) 2025 Influenza Vaccine (#1) 2025 , 03/23/2018, 02/18/2017, Additional history exists Cholesterol Screening (Lipid Panel) 05/10/2026 05/10/2021 Osteoporosis Screening (Bone Density Screening) 03/09/2028 03/09/2018 Colorectal Cancer Screening: Colonoscopy 06/21/2030 06/21/2020 Pneumococcal Vaccine: 50+ Years Completed 09/03/2017, 03/15/2015 Hepatitis C Screening Completed 07/13/2018 HIB Vaccines Aged Out No longer eligi ble based on patient's age to complete this topic HPV Vaccines Aged Out No longer eligi ble based on patient's age to complete this topic Hepatitis A Vaccines Aged Out No long er eligible based on patient's age to complete this topic Hepatitis B Vaccines Aged Out No long er eligible based on patient's age to complete this topic IPV Vaccines Aged Out No longer eligi ble based on patient's age to complete this topic MMR Vaccines Aged Out No longer eligi ble based on patient's age to complete this topic Meningococcal ACWY Vaccine Aged Out N o longer eligible based on patient's age to complete this topic Meningococcal B Vaccine Aged Out No l onger eligible based on patient's age to complete this topic RSV Immunization Patients Under 20 months Aged Out No longer eligible based on patient's age to complete this topic Varicella Vaccines Aged Out No longer eligible based on patient's age to complete this topic Procedures Procedure Name Priority Date/Time Associated Diagnosis Comments ANNUAL BMP BLOOD TEST Routine 05/10/2021 LIPID PANEL Routine 05/10/2021 COLONOSCOPY Routine 06/21/2020 HEPATITIS C SCREENING Routine 07/13/2018 DXA BONE DENSITY STUDY 1+ SITS AXIAL SKEL Routine 03/09/2018 11:06 AM EDT Other specified disorders of bone density and structure, unspecified site SCR MAMMO BI INCL CAD Routine 11/18/2017 11:43 AM EDT Encounter for screening mammogram for malignant neoplasm of breast from Last 3 Months or Most Recently Relevant to Health Maintenance Results * Annual BMP Blood Test (05/10/2021) [facility] Annual BMP Blood Test ABSTRACTED [facility] Provider HEALTH MAINTENANCE Final Result * (ABNORMAL) Lipid panel (05/10/2021) [facility] LDL/HDL Ratio 4 0 - 4 Triglycerides 163(A) 0 - 150 mg/dL Cholesterol 179 0 - 200 mg/dL HDL 42 >=39 mg/dL LDL Cholesterol 105(A) 0 - 100 mg/dL Blood Venous blood specimen / Unknown [facility] Provider LAB BLOOD ORDERABLES Aarti l Result * Colonoscopy (06/21/2020) [facility] Colonoscopy no interpretation , abstracted Anatomical Region Laterality Modality Other [facility] Provider HEALTH MAINTENANCE Final Result * Hepatitis C Screening (07/13/2018) [facility] Hepatitis C Screening ABSTRACTED [facility] Provider HEALTH MAINTENANCE Final Result * DXA BONE DENSITY STUDY 1+ SITS AXIAL SKEL (03/09/2018 11:06 AM EDT) Anatomical Region Laterality Modality Bone Densitometr y 01/05/2018 1:47 PM EDT Narrative 03/09/2018 12:44 PM EDT BONE DENSITY Lumbar Spine T-score is -0.9 (SD relative to 20-29 y/o adult) Z-score is +1.1 (SD relative to age matched peers) This is normal by criteria defined by the WHO. Left Hip T-score is -1.9 Z-score is -0.2 This is consistent with osteopenia by criteria defined by the WHO. Comparison exam(s): significant increase in bone density of hip when compared to most recent bone density examination Confidence level is +/-95%. Impression: Based on the World Health Organization criteria, Salomon Cai should be classified as having osteopenia. This patient has a 18% risk of major osteoporotic fracture and a 2.7% risk of hip fracture over the next 10 years. (World Health Organization Fracture Risk Assessment) [facility] Department of Internal Medicine recommends using National Osteoporosis Foundation (NOF) guidelines in treatment decisions related to osteoporosis. NOF guidelines suggest considering treatment for postmenopausal women and men aged 50 or older presenting with the following: History of hip or vertebral fracture. T-score less than or equal to -2.5 (DXA) at the femoral neck, total hip, or spine, after appropriate evaluation to exclude secondary causes. Low bone mass (T-score between -1.0 and -2.5 at the femoral neck or spine) AND a 10-year probability of a hip fracture greater than or equal to 3% OR a 10-year probability of a major osteoporosis-related fracture greater than or equal to 20% based on the [place]-adapted WHO algorithm Please note that all treatment decisions require clinical judgment and consideration of individual patient factors, including patient preferences, co-morbidities, previous drug use, risk factors not captured in the FRAX model (e.g., frailty, falls, vitamin D deficiency, increased bone turnover, interval significant decline in bone density) and possible under- or over-estimation of fracture risk by FRAX. Procedure Note Stacy Friend MD - 05/27/2022 BONE DENSITY Lumbar Spine T-score is -0.9 (SD relative to 20-29 y/o adult) Z-score is +1.1 (SD relative to age matched peers) This is normal by criteria defined by the WHO. Left Hip T-score is -1.9 Z-score is -0.2 This is consistent with osteopenia by criteria defined by the WHO. Comparison exam(s): significant increase in bone density of hip whencompared to most recent bone density examination Confidence level is +/-95%. Impression: Based on the World Health Organization criteria, Salomon Cai should beclassified as having osteopenia. This patient has a 18% risk of majorosteoporotic fracture and a 2.7% risk of hip fracture over the next 10years. (World Health Organization Fracture Risk Assessment) [facility] Department of Internal Medicine recommendsusing National Osteoporosis Foundation (NOF) guidelines in treatmentdecisions related to osteoporosis. NOF guidelines suggest consideringtreatment for postmenopausal women and men aged 50 or older presentingwith the following: History of hip or vertebral fracture. T-score less than or equal to -2.5 (DXA) at the femoral neck, total hip,or spine, after appropriate evaluation to exclude secondary causes. Low bone mass (T-score between -1.0 and -2.5 at the femoral neck or spine)AND a 10-year probability of a hip fracture greater than or equal to 3% ORa 10-year probability of a major osteoporosis-related fracture greaterthan or equal to 20% based on the [place]-adapted WHO algorithm Please note that all treatment decisions require clinical judgment andconsideration of individual patient factors, including patientpreferences, co-morbidities, previous drug use, risk factors not capturedin the FRAX model (e.g., frailty, falls, vitamin D deficiency, increasedbone turnover, interval significant decline in bone density) and possibleunder- or over-estimation of fracture risk by FRAX. us Liz Laws MD IMG DXA PROCEDURES F inal Result * SCR MAMMO BI INCL CAD (11/18/2017 11:43 AM EDT) Anatomical Region Laterality Modality Radiographic Ofelia ging 11/14/2016 11:3 5 AM EDT Narrative 11/18/2017 12:09 PM EDT This is a summary report. The complete report is available in the patient's medical record. If you cannot access the medical record, please contact the sending organization for a detailed fax or copy. Full field digital screening mammography, reviewed with CAD and compared to previous. The breasts are composed of fatty and fibroglandular tissue. No suspicious mass, architectural distortion or suspicious calcifications are identified. IMPRESSION: : No mammographic evidence of malignancy. BIRADS 1-Negative; N. 5 year breast cancer risk assessment 1.1 % Lifetime breast cancer risk assessment 3.8 % Breast cancer risk category Low (<15%) Procedure Note Chi Rao MD - 05/27/2022 This is a summary report. The complete report is available in thepatient's medical record. If you cannot access the medical record, pleasecontact the sending organization for a detailed fax or copy. Full field digital screening mammography, reviewed with CAD and comparedto previous. The breasts are composed of fatty and fibroglandular tissue.No suspicious mass, architectural distortion or suspicious calcificationsare identified. IMPRESSION: : No mammographic evidence of malignancy. BIRADS 1-Negative; N. 5 year breast cancer risk assessment 1.1 % Lifetime breast cancer risk assessment 3.8 % Breast cancer risk category Low (<15%) Liz Laws MD IMG XR PROCEDURES Fi nal Result from Last 3 Months or Most Recently Relevant to Health Maintenance Insurance MEDICARE Advance Directives Documents on File Type Date Recorded Patient Paraprofessional Education Assistant Expl anation Health Care Decision (hx) 01/21/2021 AD [place] DIRECTIVE Health Care Decision (hx) 01/21/2021 AD [place] DIRECTIVE Health Care Decision (hx) 01/21/2021 AD [place] DIRECTIVE Health Care Decision (hx) 01/21/2021 AD [place] DIRECTIVE Health Care Decision (hx) 01/21/2021 AD [place]PT[place] DIRECTIVE Health Care Decision (hx) 01/18/2021 AD [place]PT[place] DIRECTIVE Health Care Decision (hx) 01/18/2021 AD [place] DIRECTIVE Health Care Decision (hx) 01/18/2021 AD [place]PT[place] DIRECTIVE Health Care Decision (hx) 01/18/2021 AD [place]PT[place] DIRECTIVE Health Care Decision (hx) 01/18/2021 AD [place]PTON DIRECTIVE Health Care Decision (hx) 01/11/2015 AD [place]PT[place] DIRECTIVE Health Care Decision (hx) 01/11/2015 AD [place] DIRECTIVE Health Care Decision (hx) 01/11/2015 AD [place] DIRECTIVE Health Care Decision (hx) 01/11/2015 AD [place] DIRECTIVE Health Care Decision (hx) 01/11/2015 AD [place] DIRECTIVE Health Care Decision (hx) 01/11/2015 AD [place] DIRECTIVE Health Care Decision (hx) 01/11/2015 AD [place] DIRECTIVE Health Care Decision (hx) 01/11/2015 AD [place]PT[place] DIRECTIVE Health Care Decision (hx) 01/11/2015 AD [place]PT[place] DIRECTIVE Health Care Decision (hx) 01/11/2015 AD [place]PT[place] DIRECTIVE Care Teams Highway Maintenance Supervisor Relationship Specialty Start Date End Date Rakan Draper DO PCP - General Internal Medicine 06/20/21
--- OUTSIDE RECORDS SUMMARY | 2025-01-10 14:52 | XMS_ITS ---
Author Name [facility] Unknown Care Team Organization Name Specialty Phone Email Start Date End [facility] Termed, PROVIDER Primary Care 04/15/202201/06 [facility] ([place])
[2025-01-10] MEDS: iohexoL 350 MG/ML 100 ML INFUS..BTL IV (15:08)
[2025-01-10 16:35] VITALS: BP 137/43; PULSE 50; RESP 18; TEMP 36.6; O2SAT 96
== END 2025-01-10 16:35 | disposition home or self-care (01) ==
PROVIDERS: Physician Assistant; Emergency Provider Emergency Medicine; PCP Nurse Practitioner Family
DX: R10.9 Unspecified abdominal pain (principal); I10 Essential (primary) hypertension
CPT/HCPCS: 36415; 74177; 80048; 80076; 83735; 85025; 96374; 96375; 99284; 99291; J2270; J2405; Q9967

== ENCOUNTER → 2025-01-10 13:35 | Outpatient (BNV) | payer MEDICARE, OTHER, SELFPAY | PROVIDERS: Emergency Provider Emergency Medicine; PCP Nurse Practitioner Family; Visit Provider Radiology Diagnostic Radiology | DX: K57.30 Diverticulosis of large intestine without perforation or abscess without bleeding (principal) | CPT/HCPCS: 74177 ==

== ENCOUNTER 2025-03-01 14:47 | Outpatient (AMB) | payer MEDICARE, OTHER, SELFPAY ==
[2025-03-01 15:09] VITALS: BP 134/52; PULSE 55; O2SAT 96; BMI 29.3
--- NOTE | 2025-03-01 15:09 | MHC.OFFVIS ---
Vital Signs 03/01/25 15:09 Height 5 ft 4 in Weight 171 lb BMI 29.3 BP 134/52 L Blood Pressure Location Lt brachial Position Sitting Pulse 55 Pulse Oximetry (%) 96 Oxygen Delivery Method Room Air Intake Visit Reasons: Diverticulitis Intake Note: Patient new consult for Diverticulitis Patient cc: Diarrhea, acid reflux and swallowing difficulties. Guest Experience Captain Required: No Accompanied by: Self / Same As Patient Allergies amoxicillin (From Augmentin) Allergy (Mild, Verified 03/01/25 15:07) Vomiting clavulanic acid (From Augmentin) Allergy (Mild, Verified 03/01/25 15:07) Vomiting Medication List - Last Reconciled 03/01/25 by Madison Weston CNP amlodipine 5 mg PO DAILY cholecalciferol (vitamin D3) 125 mcg PO DAILY gabapentin 1,200 mg PO BEDTIME hydrocodone-acetaminophen 5-325 mg 1 tab PO Q6H PRN metoprolol tartrate 50 mg PO BID modafinil 100 mg PO DAILY pantoprazole 20 mg PO DAILY ropinirole 1 mg PO BEDTIME valsartan 80 mg PO DAILY HPI HPI Diverticulitis: Details: Patient is a 75-year-old female with PMH of hypertension, ILD, hx of BSC . Referred by PCP for further evaluation of diverticulitis. Pt presents following an episode of severe lower abdominal pain in January, subsequently dx?d with diverticulitis in ER and treated with abx, with symptoms resolved. Reports longstanding diarrhea predating abx but now experiencing increased stool frequency, intermittently explosive, sometimes requiring use of adult briefs; stool consistency ranges from soft to pudding-like, without hematochezia. Occasional abd discomfort relieved after defecation. Denies weight loss or fever. Noted increased urgency postprandially, sometimes barely reaching bathroom in time. Prior colonoscopy ~10 yrs ago; no hx of IBD or celiac. GERD sx present for several months; heartburn is frequent, with intermittent regurgitation and dysphagia. 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 Prior upper endoscopy and swallow study, reportedly nl. IBM dx?d in 2019; on supportive care and PT only. Hx of mild heart issues, including possible NSTEMI and chronic mild LFT elevation, attributed to timing of labs. No personal or FHx colon or gastric CA. Skin cancer (basal cell). Pulmonology f/u for dyspnea, mild stable ILD; established with cardiology. Patient denies: fever/chills, n/v, appetite changes, regurgitation,dysphasia, unintentional wt loss or melena/hematochezia. Social hx: - ETOH use, 1-2 glasses of wine, 3-4x/week -denies recreational drug use -former smoker, cessation 25 years ago - family hx as below -tolerated anesthesia in the past without difficulty. [facility] Medical History (Updated 03/01/25 @ 17:30 by Madison Weston CNP) Colon cancer screening Acid reflux Dysphagia Elevated LFTs Diarrhea HTN (hypertension) IBM (inclusion body myositis) Surgical History (Updated 03/01/25 @ 15:36 by Tarah Nayak) History of esophagogastroduodenoscopy (EGD) Hx of colonoscopy Hx of hernia repair History of lumpectomy Hx of tubal ligation Family History (Updated 03/01/25 @ 15:34 by Tarah Nayak) Father Oral cancer Mother Diabetes Social History (Updated 03/01/25 @ 15:29 by Tarah Nayak) Household Members: Family Alcohol intake: current Alcohol intake frequency: a few times a month Patient Tobacco Use Status: Tobacco use Unknown Review of Systems Const Reports as per HPI ENT Reports as per HPI Card Reports as per HPI Resp Reports as per HPI GI Reports as per HPI Reports as per HPI Physical Exam Vital Signs: Last Vital Signs Pulse 55 03/01/25 15:09 BP 134/52 L 03/01/25 15:09 Pulse Ox 96 03/01/25 15:09 Oxygen Delivery Method Room Air 03/01/25 15:09 BMI result Body Mass Index 29.3 Const General: healthy appearing, no acute distress and well developed Nutritional Appearance: average body habitus Orientation/consciousness: patient oriented x3 HEENT Head: Yes normal to inspection, Yes normocephalic and Yes atraumatic Face and sinus: Yes normal facial exam Eyes General: appearance normal, both eyes and all related structures Neck Neck: Yes normal visual inspection Resp Effort & Inspection: normal respiratory effort, able to speak in complete sentences, no tracheal deviation and symmetric chest movement Cardio Jugular venous distension: no JVD GI Inspection: Yes normal to inspection, No distended and Yes obesity Palpation (GI): Soft to palpation, not firm, nontender and No hepatosplenomegaly present Auscultation: normal bowel sounds Neuro General: patient oriented x3 Gait exam (Neuro): Normal gait present and Assistive device used (acre walker) Psych Appearance: grossly normal Mental Status: mental status grossly normal Speech and movement: Normal speech and movement present Affect: normal affect Attitude: cooperative Thought process: Normal thought process present Thought content: Normal thought content present Insight: Good insight present (Psych) Judgement: Good judgement present (Psych) Results Reviewed Results Reviewed: [address] [address] [address] Scan Report Signed Patient: Kym Cai MR#: [id number] : 1950 Acct:[id number] Age/Sex: 74 / F ADM Date: 01/10/25 Loc: .ED Attending Dr: Ordering Physician: Tania Arrieta DO Date of Service: 01/10/25 Procedure(s): CT abdomen pelvis w IV con Accession Number(s): [id number] cc: Tania Arrieta DO; DALTON WATTS NP~ Report Number: [id number]: Total DLP = 557.00 mGy-cm EXAMINATION: CT ABDOMEN PELVIS WITH IV CONTRAST HISTORY: lower abd pain COMPARISON: There are no prior studies for available comparison. TECHNIQUE: CT scan of the abdomen and pelvis was performed following administration of 85 mL Omnipaque 350 using standard departmental protocol. Coronal and sagittal reformatted images were generated and reviewed. Oral contrast material was not administered at the request of the referring physician. This CT exam was performed with one or more of the following dose reduction techniques: automated exposure control, adjustment of the mA and/or kV according to patient size, use of iterative reconstruction technique. DLP: 557 mGy-cm FINDINGS: LOWER CHEST: There is mild dependent atelectasis at the lung bases. There is no pleural effusion. CARDIOVASCULATURE: The heart is normal in size. There is no pericardial effusion. LIVER: The liver is normal in size and contour. No liver mass is identified. The hepatic and portal veins are patent. GALLBLADDER / BILE DUCTS: The gallbladder is unremarkable. There is no intra or extrahepatic biliary ductal dilatation. SPLEEN: The spleen is enlarged. No focal splenic lesion is identified. PANCREAS: The pancreas is unremarkable in appearance. ADRENAL GLANDS: Within normal limits. KIDNEYS/RETROPERITONEUM: No renal calculi are identified. There is no hydronephrosis. No renal masses are identified. LYMPH NODES: No abdominal or pelvic lymphadenopathy. VASCULATURE: The abdominal aorta demonstrates atherosclerotic calcification, but is normal in caliber. MESENTERY/PERITONEUM: No free fluid. No masses. There is no free intraperitoneal gas. STOMACH: There is a small to moderate hiatal hernia. The remainder of the stomach is collapsed. SMALL BOWEL: The small bowel is normal in caliber. COLON: There is diverticulosis and moderate wall thickening of the sigmoid colon. No definite pericolonic inflammatory stranding is seen to suggest diverticulitis. APPENDIX: The appendix is not seen, however no inflammatory changes are seen adjacent to the cecum. URINARY BLADDER/PELVIC ORGANS: The urinary bladder is unremarkable. The uterus is unremarkable. BONES / SOFT TISSUES: There is a mild compression deformity of L1 which is likely chronic. CT/CT abdomen pelvis w IV con IMPRESSION: 1. Sigmoid diverticulosis and moderate wall thickening without definite evidence of diverticulitis. An underlying mass is not excluded. Sigmoidoscopy is suggested if this has not recently been performed. 2. Small to moderate hiatal hernia. 3. Splenomegaly. Assessment & Plan Assessment & Plan (1) Diarrhea: Code(s): R19.7 - Diarrhea, unspecified Category: Medical Qualifiers: Diarrhea type: unspecified type Qualified Code(s): R19.7 - Diarrhea, unspecified Plan: Chronic, inc freq stools; post-infectious course possible, but sx predate abx; negative for overt infectious features; no red flags for IBD, but IBD/IBS/celiac/steatorrhea considered. Additional Testing: - Stool studies: infectious panel (C.diff, if loose), ova/parasite, fecal calprotectin, fecal fat - Laboratory: celiac panel (serology), CRP - Colonoscopy scheduled (first in 10 yrs) - Repeat fasting LFTs Medication Management: Imodium PRN (2 tab, then 1 tab post-BM, up to 16 mg/24h); continue as per current pattern Lifestyle Recommendations: Increase dietary fiber to bulk stools, avoid known triggers if identified, maintain hydration Follow-Up: 3 months f/u after imaging and stool/lab results; sooner via portal if significant changes (2) Dysphagia: Code(s): R13.10 - Dysphagia, unspecified Category: Medical Qualifiers: Dysphagia type: unspecified Qualified Code(s): R13.10 - Dysphagia, unspecified Plan: Progressive dysphagia, mostly pills/solids; previously nl EGD/barium swallow per pt; worsening pattern requires eval for progression or alternative pathology Additional Testing: -Repeat barium swallow as above - EGD ordered Medication Management: N/A Lifestyle Recommendations: Continue using moist foods/crackers for pills; monitor for aspiration/choking Follow-Up: 3 months or after EGD/imaging, earlier if significant sx (3) Acid reflux: Code(s): K21.9 - Gastro-esophageal reflux disease without esophagitis Category: Medical Qualifiers: Esophagitis presence: esophagitis presence not specified Qualified Code(s): K21.9 - Gastro-esophageal reflux disease without esophagitis Plan: Chronic heartburn, regurgitation, only partial response to pantoprazole Additional Testing: -EGD scheduled at time of colonoscopy -upper GI series with barium swallow ordered Medication Management: Continue pantoprazole (need to confirm dose), recommend dosing on empty stomach, 30 min before meals; adjust dose if needed upon review Lifestyle Recommendations: Food trigger diary; avoid caffeine, alcohol, acidic/fatty/spicy foods, small meals, upright after eating Follow-Up: f/u after upper GI eval (4) Elevated LFTs: Code(s): R79.89 - Other specified abnormal findings of blood chemistry Category: Medical Plan: Mild elevation, no imaging evidence of hepatic dz; may be non-fasting artifact Additional Testing: Repeat LFTs fasting x8 h, as scheduled Medication Management: N/A pending repeat Lifestyle Recommendations: N/A Follow-Up: Review when results available (5) IBM (inclusion body myositis): Code(s): G72.41 - Inclusion body myositis [IBM] Category: Medical Plan: Established dx; progressive weakness/dysphagia; currently on PT; no current immune tx Additional Testing: None specific at this visit Medication Management: Continue PT Lifestyle Recommendations: Continue safety/fall prevention, adaptive equipment (walker), maintain strength as possible Follow-Up: Per neurology/rheum Plan Follow-up in 3 months or sooner as needed Time: I spent a total of 45 minutes on the date of encounter which includes: Preparing to see the patient (reviewed previous documentation, test results and medical history) Performing a medically appropriate exam and/or evaluation Ordering medications, tests, and procedures Documenting clinical information in the health record Orders: Orders GI Panel Today R19.7 - Diarrhea, unspecified Ova and Parasite Today R19.7 - Diarrhea, unspecified Fecal Fat Qualitative Today R19.7 - Diarrhea, unspecified CDiff Gene PCR Today R19.7 - Diarrhea, unspecified Calprotectin, Fecal Today R19.7 - Diarrhea, unspecified C Reactive Protein Today R19.7 - Diarrhea, unspecified Liver Panel Today R79.89 - Other specified abnormal findings of blood chemistry Transglutaminase IgA Today R19.7 - Diarrhea, unspecified, R79.89 - Other specified abnormal findings of blood chemistry FL upper GI w air w Ba Swallow Today K21.9 - Gastro-esophageal reflux disease without esophagitis, R13.10 - Dysphagia, unspecified Referrals GI Procedure Notification K21.9 - Gastro-esophageal reflux disease without esophagitis, R13.10 - Dysphagia, unspecified, R19.7 - Diarrhea, unspecified, Z12.11 - Encounter for screening for malignant neoplasm of colon Medications: New polyethylene glycol 3350 (Miralax) per colonoscopy prep instructions 238 grams PO ONCE 238 grams 0RF bisacodyl Take per colonoscopy instructions 5 mg PO ONCE 4 tabs 0RF Coding Level of Care Code New Pt New Pt Level 4 (32473) Patient Type New Diagnoses Diarrhea, unspecified type R19.7 Diarrhea type: unspecified type Dysphagia, unspecified type R13.10 Dysphagia type: unspecified Gastroesophageal reflux disease, unspecified whether esophagitis present K21.9 Esophagitis presence: esophagitis presence not specified Elevated LFTs R79.89 IBM (inclusion body myositis) G72.41
--- OUTSIDE RECORDS SUMMARY | 2025-03-01 17:22 | XMS_ITS | Clinical Summary ---
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 CPKs elevated [...] 07/10/10, EF 62% Osteopenia 07/06/2013 Psoriasis 07/06/2013 Encounters Date Type Department Care Team Description 02/08/2025 3:30 PM EDT Office Visit [address] [id number] Alesha Fierro MD History of partial mastectomy of left breast (Primary Dx); Inclusion body myositis (CMS/HCC V28); History of invasive breast cancer from Last 3 Months Immunizations Name Administration Dates Next Due Influenza trivalent, 0.5mL ( Fluad) 65yo and older 05/09/2021,03/23/2018,02/18/2017 Influenza trivalent, 0.5mL, preservative free (Fluarix; FluLaval; Fluzone) ages 6mo and older (Afluria) 3 years and older 03/15/2015,04/11/2014 NewsCrafted SARS-CoV-2 COVID-19, mRNA, LNP-S, preservative free 09/15/2020,08/25/2020 [...] BIOPSY W/ LOOP ELECTRODE EXCISION 2009 PROCEDURE: [place] CONIZATION CERVIX W/WO D&C RPR ELTRD EXC; [...] cell NSTEMI (non-ST elevated myoc ardial infarction) (CMS/HCC V24, CMS/HCC V28) 03/26/2016 DX:NSTEMI (non-ST elevated m yocardial infarction) ([facility]) History of basal cell carcinoma 03/05/2015 DX:History [...] Internal hemorrhoids 07/26/2020 DX:Internal hemorrhoids Breast cancer (CMS/HCC V24, CMS/HCC V28) 01/14/2021 DX:Breast cancer (HCC); COMM ENT: DCIS left 01/2021 Breast cancer (CMS/HCC V24, CMS/HCC V28) 01/14/2021 DX:Breast cancer (HCC) [...] Sign Reading Time Taken Comments Blood Pressure 123/66 02/08/2025 3:59 PM EDT Pulse 79 02/08/2025 3:59 PM EDT Temperature 36.9 C (98.4 F) 02/08/2025 3:59 PM EDT Respiratory Rate - - Oxygen Saturation - - Inhaled Oxygen Concentration - - Weight 79.8 kg (176 lb) 12/30/2023 3:30 PM EDT Height - - Body Mass Index - - Plan of Treatment Upcoming Encounters Date Type Department Care Team (Late st Contact Info) Description 02/14/2026 1:45 PM EDT [facility] Visit [facility] [address] [phone] Alesha Fierro MD [address] [place] [phone] Health Maintenance Due Date Last Done Comments Falls Risk Assessment 05/17/2022 Social Influencers of Health Screening 05/17/2022 Hypertension/CHF/CAD Annual BMP Blood Test 05/18/2022 05/10/2021 Medicare Annual Wellness Visit 10/25/2023 10/24/2022 Depression Screening 06/08/2024 RSV Immunization Adult Patients (1 - 1-dose 75+ series) 2025 COVID-19 Vaccine ( season) 2025 02/10/2021, 09/15/2020, 08/25/2020 Influenza Vaccine (#1) 2025 3, 05/09/2021, 02/24/2020, Additional history exists Cholesterol Screening (Lipid Panel) 05/10/2026 05/10/2021 Osteoporosis Screening (Bone Density Screening) 03/09/2028 03/09/2018 Colorectal Cancer Screening: Colonoscopy 06/21/2030 06/21/2020 DTaP,Tdap,and Td Vaccines (4 - Td or Tdap) 09/14/2033 09/15/2023, 05/04/2016, 07/06/2013 Pneumococcal Vaccine: 50+ Years Completed 09/03/2017, 03/15/2015 Breast Cancer Screening Discontinued 11/19/19 18, 05/18/2017, 11/21/2016, Additional history exists Zoster Vaccines Completed 04/17/2018, 12/03/2017 Hepatitis C Screening Completed 07/13/2018 HIB Vaccines [...] Results * Annual BMP Blood Test (05/10/2021) [facility] Annual BMP Blood Test ABSTRACTED [facility] Provider HEALTH MAINTENANCE Final Result * (ABNORMAL) Lipid panel (05/10/2021) [facility] LDL/HDL Ratio 4 0 - 4 Triglycerides 163(A) 0 - 150 mg/dL Cholesterol 179 0 - 200 mg/dL HDL 42 >=39 mg/dL LDL Cholesterol 105(A) 0 - 100 mg/dL Blood Venous blood specimen / Unknown [facility] Provider LAB BLOOD ORDERABLES Aarti l Result * Colonoscopy (06/21/2020) [facility] Colonoscopy no interpretation , abstracted Anatomical Region Laterality Modality Other [facility] Provider HEALTH MAINTENANCE Final Result * Hepatitis C Screening (07/13/2018) [facility] Hepatitis C Screening ABSTRACTED [facility] Provider HEALTH MAINTENANCE Final Result * DXA [...] Based on the World Health Organization criteria, Kym Cai should be classified as having osteopenia. This patient has a 18% risk of major osteoporotic fracture and a 2.7% risk of hip fracture over the next 10 years. (World Health Organization Fracture Risk Assessment) [facility] Department of Internal Medicine recommends using National [...] Based on the World Health Organization criteria, Kym Cai should beclassified as having osteopenia. This patient has a 18% risk of majorosteoporotic fracture and a 2.7% risk of hip fracture over the next 10years. (World Health Organization Fracture Risk Assessment) [facility] Department of Internal Medicine recommendsusing National Osteoporosis [...] % Breast cancer risk category Low (<15%) us Liz Laws MD IMG XR PROCEDURES Fi nal Result from Last 3 Months or Most Recently Relevant to Health Maintenance Insurance MEDICARE Advance Directives Documents on File Type Date Recorded Patient Traffic Sign Erection Supervisor Expl anation Health Care Decision (hx) 01/21/2021 [...] DIRECTIVE Health Care Decision (hx) 01/11/2015 AD UPOTN DIRECTIVE Health Care Decision (hx) 01/11/2015 AD UPTON DIRECTIVE Health Care Decision (hx) 01/11/2015 AD UPTON DIRECTIVE Health Care Decision (hx) 01/11/2015 AD UPTON DIRECTIVE Health Care Decision (hx) 01/11/2015 AD UPTON DIRECTIVE Health Care Decision (hx) 01/11/2015 AD UPTON DIRECTIVE Health Care Decision (hx) 01/11/2015 AD UPTON DIRECTIVE Health Care Decision (hx) 01/11/2015 AD UPTON DIRECTIVE Care Teams Supervisor Plastics Relationship Specialty Start Date End Date Rakan Draper DO PCP - General Internal Medicine 06/20/21
--- OUTSIDE RECORDS SUMMARY | 2025-03-01 17:22 | XMS_ITS | Clinical Summary ---
Author Organization [facility] Address [address] [facility] [facility] [address] [place] [phone] Phone Care Team Providers Care Buffing And Polishing Wheel Repairer Name Role Phone Peter Al APPLICATION TECHNICAL DESIGNER Primary Care Provid er Allergies Active Allergy [...] TOBACCO SCREENING 1963 HEPATITIS C SCREENING 01/16/1968 COLOGUARD 1995 COLONOSCOPY 1995 COLORECTAL CANCER SCREENING 1995 FIT TEST 1995 FOBT 1995 SIGMOIDOSCOPY 1995 VIRTUAL COLONOSCOPY 1995 OSTEOPOROSIS SCREENING INITIAL (ONE-TIME) 2015 DEPRESSION SCREENING 12/24/2023 12/23/2022 INFLUENZA VACCINE (#1) 2025 , 02/24/2020, 02/25/2019, Additional history exists RSV VACCINE (1 - 1-dose 75+ series) 2025 COVID-19 VACCINE ( season) 2025 02/10/2021, 09/15/2020, 08/25/2020 Adult Td,Tdap Booster 05/04/2026 05/04/2016, 014 PNEUMOCOCCAL VACCINES (50+ years) Completed 09/03/2017, 03/15/2015 [...] file Insurance MEDICARE PART A [place] [address] MEDICARE PART A & [place] [address] MEDICARE PART A & [place] [address] MEDICARE PART A & [place] [address] MEDICARE PART A & [place] [address] MEDICARE PART A & [place] [address] MEDICARE PART A & [place] [address] MEDICARE PART A & [place] [address] MEDICARE PART A & [place] [address] Care Teams Buffing And Polishing Wheel Repairer Relationship Specialty Start Date End Date Peter Al NP [address] [place] [phone] PCP - General Nurse Practitioner 08/27/22 Additional Source Comments The information contained in this document represents components of the legal health record. It is not the complete legal health record.[facility]
== END 2025-03-01 16:47 | disposition home or self-care (01) ==
LOC: HO.HGI 14:48
PROVIDERS: PCP Nurse Practitioner Family; Visit Provider Nurse Practitioner Family
DX: R19.7 Diarrhea, unspecified (principal); R13.10 Dysphagia, unspecified; K21.9 Gastro-esophageal reflux disease without esophagitis; R79.89 Other specified abnormal findings of blood chemistry; G72.41 Inclusion body myositis [IBM]
CPT/HCPCS: 99204

== ENCOUNTER → 2025-03-01 14:47 | Outpatient (BNVA) | payer MEDICARE, OTHER, SELFPAY | PROVIDERS: PCP Nurse Practitioner Family; Visit Provider Nurse Practitioner Family | DX: R19.7 Diarrhea, unspecified (principal); R13.10 Dysphagia, unspecified; K21.9 Gastro-esophageal reflux disease without esophagitis; R79.89 Other specified abnormal findings of blood chemistry; G72.41 Inclusion body myositis [IBM]; I10 Essential (primary) hypertension; Z87.891 Personal history of nicotine dependence | CPT/HCPCS: 99202 ==

== ENCOUNTER 2025-03-14 10:06 | Outpatient (REF) | payer MEDICARE, OTHER, SELFPAY ==
--- OUTSIDE RECORDS SUMMARY | 2025-03-14 11:59 | XMS_ITS | Clinical Summary ---
Author Organization [facility] Address [address] [facility] [address] [place] [phone] Phone Care Team Providers Care Wastewater Analyst Name Role Phone Peter Al PAPER WRAPPING MACHINE OPERATOR Primary Care Provid er Allergies Active Allergy [...] Insurance MEDICARE PART A [place] [address] MEDICARE PART A & [place] [address] MEDICARE PART A & [place] [address] MEDICARE PART A & [place] [address] MEDICARE PART A & [place] [address] MEDICARE PART [address] & [place] [address] MEDICARE PART [address] [place] [address] MEDICARE PART A & [place] [address] MEDICARE PART A & [place] [address] Care Teams Wastewater Analyst Relationship Specialty Start Date End Date Peter Al NP [address] [place] [phone] PCP - General Nurse Practitioner 08/27/22 Additional Source Comments The information contained in this document represents components of the legal health record. It is not the complete legal health record.[facility]
--- OUTSIDE RECORDS SUMMARY | 2025-03-14 11:59 | XMS_ITS | Clinical Summary ---
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, partial mastectomy 01/18/2021 Internal hemorrhoids 07/26/2020 Hepatic steatosis 03/21/2020 Colon polyp 03/12/2019 Overview (07/11/2024): 2019, repeat colo 2028 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, [facility]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/19 19 Overview (07/11/2024): Onset early [...] Description 02/08/2025 3:30 PM EDT Office Visit [address] [phone] Alesha Fierro MD History of partial mastectomy of left breast (Primary Dx); Inclusion body myositis (CMS/HCC V28); History of invasive breast cancer from Last 3 Months Immunizations Immunization Administration Dates Next Due Influenza trivalent, 0.5mL ( Fluad) 65yo and older 05/09/2021,03/23/2018,02/18/2017 Influenza trivalent, 0.5mL, preservative free (Fluarix; FluLaval; Fluzone) ages 6mo and older (Afluria) 3 years and older 03/15/2015,04/11/2014 [employer] SARS-CoV-2 COVID-19, mRNA, LNP-S, preservative free 09/15/2020,08/25/2020 [...] BIOPSY W/ LOOP ELECTRODE EXCISION 2009 PROCEDURE: [place] CONIZATION CERVIX W/WO D&C RPR ELTRD EXC; [...] 03/26/2016 DX:NSTEMI (non-ST elevated m yocardial infarction) ([facility]) History of basal cell carcinoma 03/05/2015 [...] PM EDT [facility] [address] [phone] Alesha Fierro MD [address] [place] [phone] Health Maintenance Due Date Last Done [...] Results * Annual BMP Blood Test (05/10/2021) [facility] Annual BMP Blood Test ABSTRACTED [facility] Provider HEALTH MAINTENANCE Final Result * (ABNORMAL) Lipid panel (05/10/2021) [facility] LDL/HDL Ratio 4 0 - 4 Triglycerides 163(A) 0 - 150 mg/dL Cholesterol 179 0 - 200 mg/dL HDL 42 >=39 mg/dL LDL Cholesterol 105(A) 0 - 100 mg/dL Blood Venous blood specimen / Unknown [facility] Provider LAB BLOOD ORDERABLES Aarti l Result * Colonoscopy (06/21/2020) [facility] Colonoscopy no interpretation , abstracted Anatomical Region Laterality Modality Other [facility] Provider HEALTH MAINTENANCE Final Result * Hepatitis C Screening (07/13/2018) [facility] Hepatitis C Screening ABSTRACTED [facility] Provider HEALTH MAINTENANCE Final Result * [...] (World Health Organization Fracture Risk Assessment) [facility] Department of Internal Medicine recommends using [...] (World Health Organization Fracture Risk Assessment) [facility] Department of Internal Medicine recommendsusing National [...] Documents on File Type Date Recorded Patient Equipment Analyst Expl anation Health Care Decision (hx) 01/21/2021 [...] (hx) 01/11/2015 AD UPTON DIRECTIVE Care Teams Destination Imagination Coordinator Relationship Specialty Start Date End Date Rakan Draper DO PCP - General Internal Medicine 06/20/21
[2025-03-14 12:16] LABS: Alanine Aminotransferase 70 U/L (0-31); Albumin Level 4.2 g/dL (3.5-5.0); Alkaline Phosphatase 59 U/L (39-117); Aspartate Amino Transferase 48 U/L (5-31); Total Protein 6.1 g/dL (6.5-8.0)
== END 2025-03-14 10:07 | disposition home or self-care (01) ==
LOC: HO.LAB 10:06
PROVIDERS: PCP Nurse Practitioner Family; Referring Provider Nurse Practitioner Family; Visit Provider Nurse Practitioner Family
DX: R19.7 Diarrhea, unspecified (principal); R79.89 Other specified abnormal findings of blood chemistry
CPT/HCPCS: 36415; 80076; 86140; 86364

== ENCOUNTER 2025-03-22 18:30 | Outpatient (REF) | payer MEDICARE, OTHER, SELFPAY ==
[2025-03-23 14:51] LABS: CDiff Gene PCR POSITIVE (Negative)
--- OUTSIDE RECORDS SUMMARY | 2025-03-23 15:29 | XMS_ITS | Data Portability ---
Author Organization [facility], [address] Address [address] [place] [address] Care Team Providers Care Head Of Sales And Marketing Name Role Phone [facility] Primary Care Pr ovider Assessment No assessment recorded. Plan of Treatment Reminders Order Date Submit Date Provider Last Modified By Organization Details Last Modified Time Details Appointments None recorded. Lab rapid strep group A, throat 2021 022 [facility], [address] [place] [address], [place], [address], 18:48:20 culture, throat 2021 022 [facility], [address] [place] [address], [place], [address], 18:04:08 Referral None recorded. Procedures None recorded. Surgeries None recorded. Imaging None recorded. Medication Orders Bactrim DS 800 mg-160 mg tablet 2023 024 DOMONI[facility][id number], [address], [id number], 4 13:40:18 permethrin 5 % topical cream [address] [facility][id number], [address], [place], [id number], 4 13:25:38 triamcinolo ne acetonide 0.1 % topical cream 2022 023 DOMONIQUE [facility] #[id number], [address] [place], [id number], 3 10:42:30 hydroxyzine HCl 25 mg tablet 2022 023 DOMONIQUE [facility] #[id number], [address] [place], [id number], 3 10:42:30 amoxicillin 875 mg tablet 2021 022 [email or web address] [id number], [address] [place], [id number], 10:02:59 Patient TargetsNo targets recorded. Patient Instructions Encounter Date Encounter Id Patient Instructions Last Modified By Organization Details Last Modified Time 05/08/2022 [id number] sore throat: car e instructions [email or web address] Not available 05/08/2022 18:48:20 11/09/2022 [id number] dermatitis: care instructions Not available 11/09/2022 10:42:23 as we discussed your symptoms seem to be more consistent with an allergic process than an infectious one. as you are already on oral steroids we will add some topical steroid cream and an antihistamine to help with symptoms. Use them as directed and monitor your symptoms. If the redness continues to spread and is worse and there is more warmth and pain then that may be a sign we are wrong and it would need antibiotics at that point. Follow up with your PCP as needed Not available 11/09/2022 10:45:38 12/31/2022 [id number] scabies: care instructions [email or web address] Not available 12/31/2022 17:05:54 Take medication as directed. Follow up with Primary DR for recheck. Return for new or worsening symptoms. [email or web address] Not available 12/31/2022 17:06:40 02/11/2024 [id number] Cellulitis is a skin infection caused by bacteria, most often strep or staph. It often occurs after a break in the skin from a scrape, cut, bite, or puncture, or after a rash. Cellulitis may be treated without doing tests to find out what caused it. The doctor has checked you carefully, but problems can develop later. If you notice any problems or new symptoms, get medical treatment right away. How can you care for yourself at home? Take your antibiotics as directed. Do not stop taking them just because you feel better. You need to take the full course of antibiotics. Prop up the infected area on pillows to reduce pain and swelling. Try to keep the area above the level of your heart as often as you can. If your doctor told you how to care for your infection, follow your doctor's instructions. If you did not get instructions, follow this general advice: Wash the area with clean water 2 times a day. Don't use hydrogen peroxide or alcohol, which can slow healing. You may cover the area with a thin layer of petroleum jelly, such as Vaseline, and a non-stick bandage. Apply more petroleum jelly and replace the bandage as needed. Be safe with medicines. Take pain medicines exactly as directed. If the doctor gave you a prescription medicine for pain, take it as prescribed. If you are not taking a prescription pain medicine, ask your doctor if you can take an nozo-ozj-imbnwxd medicine. [email or web address] Not available 02/11/2024 13:40:06 Reason for Referral None Reported. Results Created Date Observation Date Name Description Value Unit Range Abnormal Flag Note LastModifiedBy Organization Detail LastModifiedTime 05/08/20 22 05/13/2022 BETA STREP GP A CULTU RE beta strep gp A culture Negati ve Refer ence Range : Negat messi Not Available [facility] ([facility]) [address] [place], [address], 05/13/2022 14:06:46 05/08/2005/09/2022 TEST CODE THU Melo test code change Malissa Madera note that the Micro biolo gy test code was thu chao to refle ct the speci men sourc e or trans port recei diandra. Not Available [facility] ([facility]) [address] [place], [address], 05/12/2022 14:06:03 05/08/20 22 05/08/2022 rapid strep group A, throa t Unknown Analyte Normal = Negati ve Not Available [address] [address] [facility] [address] [place] [address], [address], 05/08/2022 17:32:52 05/08/20 22 05/08/2022 rapid strep group A, throa t Unknown Analyte negati ve Not Available [address], [address], 05/08/2022 17:32:52 Result Notes None recorded. Problems Name Problem SNOMED Code Status Onset Date Resolution Date Notes Provider Name and Address Organization Details Recorded Time Polymyositis 31981134 Active 2021 EFFIE LOYA null, [place] - [facility] 2 17:37:59 Interstitial lung disease 986406982 Active 2021 EFFIE LOYA null, PA - [facility] 2 17:38:13 Hypertensive disorder 72333814 Active 2021 EFFIE LOYA null, PA - [facility] 2 17:38:29 Anxiety 70713585 Active 2021 EFFIE LOYA null, PA - [facility] 2 17:38:34 Depressive disorder 48044318 Active 2021 EFFIE LOYA null, PA - [facility] 2 17:38:40 Chronic obstructive pulmonary disease 46727714 Active 2021 EFFIE LOYA null, PA - [facility] 2 17:38:51 Gastroesophage al reflux disease 287328541 Active 2021 EFFIE LOYA null, PA - [facility] 2 17:39:16 Malignant neoplasm of breast 752443730 Active 2021 EFFIE LOYA null, PA - [facility] 2 17:39:42 Basal cell carcinoma of skin 467565767 Active 2021 EFFIE aponte, PA - [facility] 2 17:40:36 Problem Notes None recorded. Procedures Surgical History Date Name Laterality Status Provider Name and Address Organization Details Recorded Time 1 lumpectomy of breast completed EFFIE LOYA PA - [facility] 05/08/2022 17:40:23 0 hernia repair completed EFFIE VINCENZO PA - [facility] 05/08/2022 17:41:38 Imaging Results None recorded. Procedure Notes None recorded. Medical Equipment None Reported. Allergies Allergen ID Allergen Name Allergen Category Reaction Reaction Severity Criticality Documentation Date Start Date Code Code System Note Provider Name and Address Organization Details Recorded Time 1882 Augmentin medicatio n vomiting Not available Not available 05/08/2022 44168 2 RxNorm EFFIE aponte, [place] - [facility] 2 17:33:56 1886 Dolobid medicatio n other Not available Not available 05/08/202236960 6 RxNorm EFFIEMALACHI aponte, [place] - [facility] 2 17:34:31 Medications Name Sig Start Date Stop Date Status Note LastModified by Organization Details LastModified Time magic mouth lido/maalox /diph 11 11/09 completed Not Available Not Available Not Available magic mouth diph/maalox /liod 11 11/09 completed Not Available Not Available Not Available nystatin 100,000 unit/mL oral suspension SHAKE LIQUID AND TAKE 5 ML BY MOUTH FOUR TIMES DAILY FOR 7 DAYS SWISH AND SWALLOW 11/09 completed Not Available Not Available Not Available gabapentin 600 mg tablet TAKE 2 TABLETS BY MOUTH DAILY AT BEDTIME active Not Available Not Available No t Available doxycycline hyclate 100 mg capsule TAKE 1 CAPSULE BY MOUTH TWICE DAILY FOR 7 DAYS active Not Available Not Available No t Available ipratropium 0.5 mg-albutero l 3 mg (2.5 mg base)/3 mL nebulizatio n soln USE 1 AMPULE IN NEBULIZER EVERY 6 HOURS UNTIL FINISHED active Not Available Not Available No t Available cetirizine 10 mg tablet TAKE 1 TABLET BY MOUTH EVERY DAY active Not Available Not Available No t Available azithromyci n 250 mg tablet TAKE 2 TABLETS BY MOUTH FOR 1 DAY THEN TAKE 1 TABLET BY MOUTH DAILY FOR 4 DAYS active Not Available Not Available No t Available ibuprofen 800 mg tablet TAKE 1 TABLET BY MOUTH THREE TIMES A DAY active Not Available Not Available No t Available valacyclovi r 1 gram tablet TAKE 1 TABLET BY MOUTH THREE TIMES DAILY FOR 7 DAYS 11/09 completed Not Available Not Available Not Available methylpredn isolone 32 mg tablet TAKE 1 TABLET BY MOUTH TWICE DAILY WITH FOOD active Not Available Not Available No t Available prednisone 20 mg tablet TAKE 2 TABLETS BY MOUTH EVERY MORNING FOR 5 DAYS THEN DECREASE TO 1 TABLET BY MOUTH EVERY MORNING FOR 5 DAYS active Not Available Not Available No t Available dextroamphe tamine-amph etamine 10 mg tablet TAKE 1 TABLET BY MOUTH DAILY IN THE MORNING active Not Available Not Available No t Available clonazepam 0.5 mg tablet TAKE 1 TABLET BY MOUTH DAILY NEEDED FOR ANXIETY active Not Available Not Available No t Available sertraline 100 mg tablet TAKE 2 TABLETS BY MOUTH EVERY DAY active Not Available Not Available No t Available methylpredn isolone 4 mg tablet TAKE 4 TABLETS BY MOUTH DAILY [id number] TAKE 3 TABLETS DAILY [id number] TAKE 2 TABLETS DAILY [id number] TAKE 1 TABLET DAILY [id number] 05/08 completed Not Available Not Available Not Available permethrin 5 % topical cream Apply 1 applicati on every week by topical route for 14 days. 02/10 completed Not Available Not Available Not Available sulfamethox azole 800 mg-trimetho prim 160 mg tablet TAKE 1 TABLET BY MOUTH EVERY 12 HOURS FOR 7 DAYS DIRECTED FOR SKIN INFECTION active Not Available Not Available No t Available tramadol 50 mg tablet TAKE 1 TABLET BY MOUTH EVERY 6 HOURS FOR 7 DAYS active Not Available Not Available No t Available triamcinolo ne acetonide 0.1 % topical cream APPLY THIN LAYER TOPICALLY TO THE AFFECTED AREA TWICE DAILY active Not Available Not Available No t Available butalbital- acetaminoph en-caffeine 50 mg-325 mg-40 mg tablet TAKE 1 TABLET BY MOUTH EVERY 4 HOURS NEEDED FOR PAIN active Not Available Not Available No t Available pantoprazol e 20 mg tablet,desmond yed release TAKE 1 TABLET BY MOUTH DAILY active Not Available Not Available No t Available mycophenola te mofetil 500 mg tablet TAKE 1 TABLET BY MOUTH TWICE DAILY 05/08 completed Not Available Not Available Not Available amoxicillin 875 mg tablet TAKE 1 TABLET BY MOUTH EVERY 12 HOURS FOR 10 DAYS 11/09 completed Not Available Not Available Not Available famotidine 20 mg tablet TAKE 1 TABLET BY MOUTH DAILY active Not Available Not Available No t Available modafinil 200 mg tablet TAKE 1 TABLET BY MOUTH TWICE DAILY 05/08 completed Not Available Not Available Not Available metoclopram esmer 5 mg tablet TAKE 1 TABLET BY MOUTH EVERY DAY NEEDED FOR NAUSEA. YOU MAY TAKE ANOTHER DOSE AFTER 4 TO 6 HOURS IF NEEDED 05/08 completed Not Available Not Available Not Available methocarbam ol 750 mg tablet TAKE 2 TABLETS BY MOUTH THREE TIMES DAILY FOR 7 DAYS active Not Available Not Available No t Available ropinirole 0.25 mg tablet TAKE 2 TABLETS BY MOUTH DAILY AT BEDTIME active Not Available Not Available No t Available amlodipine 10 mg tablet TAKE 1 TABLET BY MOUTH EVERY DAY active Not Available Not Available No t Available cephalexin 500 mg capsule TAKE 1 CAPSULE BY MOUTH TWICE DAILY FOR 14 DAYS 02/10 completed Not Available Not Available Not Available methylpredn isolone 8 mg tablet TAKE 6 TABLET BY MOUTH EVERY DAY active Not Available Not Available No t Available pantoprazol e 40 mg tablet,desmond yed release TAKE 1 TABLET BY MOUTH DAILY 05/08 completed Not Available Not Available Not Available tacrolimus 0.1 % topical ointment APPLY TOPICALLY TO THE AFFECTED AREA TWICE DAILY active Not Available Not Available No t Available triamcinolo ne acetonide 0.1 % topical ointment APPLY TOPICALLY TO THE AFFECTED AREA TWICE DAILY FOR UP TO 2 WEEKS active Not Available Not Available No t Available clotrimazol e-betametha sone 1 %-0.05 % topical cream APPLY TOPICALLY TO THE AFFECTED AREA TWICE DAILY active Not Available Not Available No t Available halobetasol propionate 0.05 % topical ointment APPLY TOPICALLY TO AFFECTED AREA TWICE DAILY X 2 WEEKS THEN TRANSITIO N TO ZORYVE active Not Available Not Available No t Available lidocaine 5 % topical patch active Not Available Not Available Not Available metoprolol tartrate 50 mg tablet TAKE 1 TABLET BY MOUTH TWICE DAILY WITH FOOD active Not Available Not Available No t Available folic acid 1 mg tablet TAKE 1 TABLET BY MOUTH DAILY active Not Available Not Available No t Available hydroxyzine HCl 25 mg tablet TAKE 1 TABLET BY MOUTH EVERY 6 HOURS active Not Available Not Available No t Available mometasone 0.1 % topical ointment active Not Available Not Available Not Available mupirocin 2 % topical ointment APPLY TOPICALLY TO SURGICAL SITE TWICE DAILY X 7 TO 14 DAYS OR UNTIL FULLY HEALED 11/09 completed Not Available Not Available Not Available furosemide 20 mg tablet TAKE 1 TABLET BY MOUTH DAILY active Not Available Not Available No t Available clobetasol 0.05 % topical ointment active Not Available Not Available Not Available nystatin 100,000 unit/gram topical powder APPLY 1 APPLICATI ON TOPICALLY TWICE DAILY TO AFFECTED AREA [id number] 05/08 completed Not Available Not Available Not Available albuterol sulfate HFA 90 mcg/actuati on aerosol inhaler INHALE 2 PUFFS INTO THE LUNGS FOUR TIMES DAILY NEEDED FOR WHEEZING / SHORTNESS OF BREATH active Not Available Not Available No t Available colchicine 0.6 mg tablet TAKE 1 TABLET BY MOUTH TWO TIMES A DAY active Not Available Not Available No t Available hydroxyzine HCl 10 mg tablet TAKE 1 TO 3 TABLET BY MOUTH EVERY NIGHT AT BEDTIME OR EVERY 4 TO 6 HOURS NEEDED FOR ITCHING active Not Available Not Available No t Available methylpredn isolone 16 mg tablet TAKE 1 TABLET BY MOUTH EVERY DAY WITH 32MG TABLET FOR TOTAL DAILY DOSE OF 48MG 05/08 completed Not Available Not Available Not Available ondansetron 4 mg disintegrat ing tablet DISSOLVE 1 TABLET ON THE TONGUE EVERY 8 HOURS NEEDED FOR NAUSEA AND VOMITING active Not Available Not Available No t Available losartan 100 mg tablet TAKE 1 TABLET BY MOUTH EVERY DAY active Not Available Not Available No t Available tamoxifen 20 mg tablet TAKE 1 TABLET BY MOUTH DAILY active Not Available Not Available No t Available modafinil 100 mg tablet TAKE 1 TABLET BY MOUTH DAILY IN THE MORNING FOR 14 DAYS active Not Available Not Available No t Available hydroxyzine pamoate 25 mg capsule TAKE 1 CAPSULE BY MOUTH FOUR TIMES DAILY FOR 7 DAYS NEEDED FOR NAUSEA 05/08 completed Not Available Not Available Not Available bupropion HCl SR 200 mg tablet,12 hr sustained-r elease TAKE 1 TABLET BY MOUTH EVERY MORNING active Not Available Not Available No t Available ciclopirox 0.77 % topical cream 05/08 completed Not Available Not Available Not Available methotrexat e sodium (PF) 25 mg/mL injection solution active Not Available Not Available Not Available cyclobenzap rine 5 mg tablet TAKE 1 TABLET BY MOUTH DAILY AT BEDTIME NEEDED active Not Available Not Available No t Available triamcinolo ne acetonide 0.05 % topical ointment APPLY 1 FILM TOPICALLY TO THE AFFECTED AREA TWICE DAILY FOR 14 DAYS 11/09 completed Not Available Not Available Not Available BD SafetyGlide Tuberculin Regular Bevel 1 mL 27 x 1/2 syringe USE ONE SYRINGE WEEKLY TO INJECT METHOTREX ATE 05/08 completed Not Available Not Available Not Available diclofenac 1 % topical gel APPLY TOPICALLY TO AFFECTED AREA FOUR TIMES DAILY. active Not Available Not Available No t Available lurasidone 20 mg tablet TAKE 1 TABLET BY MOUTH DAILY active Not Available Not Available No t Available BinaxNOW COVID-19 Ag Self Test kit TEST DIRECTED TODAY 11/09 completed Not Available Not Available Not Available Vitals Date Recorded Body height Body mass index (BMI) Body weight Pain severity - 0-10 verbal numeric rating [Score] - Reported Oxygen saturation Oxygen saturation in Arterial blood by Pulse oximetry Heart rate Respiratory rate Body temperature Systolic And Diastolic Provider Name and Address Organization Details Last Updated DateTime 3 160.02 cm 30.5 kg/m2 75960.8 9 g 5 95 % 95 % 60 /min 18 /min 98 [degF] 117/57 mm[Hg] DAVID MARIA [place] - [facility] 3 10:07:14 Date Recorded Body height Provider Name an d Address Organization Details Last Updated DateTime 12/31/2022 160.02 cm Marianela Navarro [place] - [facility] 12/31/2022 16:33:26 Date Recorded Body height Body mass index (BMI) Body weight Body temperature Respiratory rate Oxygen saturation Oxygen saturation in Arterial blood by Pulse oximetry Heart rate Systolic And Diastolic Provider Name and Address Organization Details Last Updated DateTime 4 160.02 cm 30.5 kg/m2 37420.8 9 g 98.4 [degF] 18 /min 97 % 97 % 57 /min 159/76 mm[Hg] Rosey Galvan [facility] 4 13:27:06 Date Recorded Body weight Body mass index (BMI) Body height Oxygen saturation Oxygen saturation in Arterial blood by Pulse oximetry Heart rate Respiratory rate Body temperature Systolic And Diastolic Provider Name and Address Organization Details Last Updated DateTime 2 85545.0 7 g 30.8 kg/m2 160.02 cm 97 % 97 % 69 /min 18 /min 97.9 [degF] 166/81 mm[Hg] EFFIE LOYA PA - [facility] 17:42:44 Social History Question Answer Notes LastModified by Organizat ion Details LastModified Time Tobacco Smoking Status Former Smoker EFFIE LOYA fay, [place] - [facility] 05/08/2022 17:41:09 When Did You Quit Smoking? 16+yearssinc elastcigaret te [email or web address] Information not available 05/08/2022 Have You Recently Traveled Abroad? No [email or web address] Information not available 05/08/2022 Sex: Unknown Functional Status Question Answer Note LastModified by Organizat ion Details LastModified Time Do you use any illicit or recreational drugs? No [email or web address] Information not available 05/08/2022 Do you or have you ever used any other forms of tobacco or nicotine? No [email or web address] Information not available 05/08/2022 What is your level of alcohol consumption? 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 Family History Relationship Description Onset Age of this Age Resolved Age Notes LastModified by Organization Details LastModified Time Father No current problems or disability [email or web address] Not available 05/08 17:40:40 Mother No current problems or disability Not available 05/08 17:40:40 Medical History No medical history recorded. Gynecological HistoryNo gynecological history recorded. Obstetrics History GPAL:G 0 P 0 0 0 0 Immunizations Vaccine Type Date Status Note Provider Nam e and Address Organization Details Recorded Time zoster recombinant 8 completed DAVID CANDACE null, PA - [facility] 11/09/2022 10:02:43 zoster recombinant 8 completed DAVID CANDACE null, PA - [facility] 11/09/2022 10:02:44 Influenza, high-dose, quadrivalent, PF 0 completed DAVID CANDACE null, PA - [facility] 11/09/2022 10:02:44 COVID-19, mRNA, LNP-S, PF, 30 mcg/0.3 mL dose 1 completed DAVID CANDACE null, PA - [facility] 11/09/2022 10:02:44 COVID-19, mRNA, LNP-S, PF, 30 mcg/0.3 mL dose 1 completed DAVID CANDACE null, PA - [facility] 11/09/2022 10:02:44 COVID-19, mRNA, LNP-S, PF, 30 mcg/0.3 mL dose 1 completed DAVID CANDACE null, PA - [facility] 11/09/2022 10:02:44 pneumococcal polysaccharide PPV23 8 completed DAVID CANDACE null, PA - [facility] 11/09/2022 10:02:44 Tdap 4 completed DAVID CANDACE null, PA - [facility] 11/09/2022 10:02:44 Pneumococcal conjugate PCV 13 5 completed DAVID CANDACE null, PA - [facility] 11/09/2022 10:02:44 Influenza, high-dose, trivalent, PF 7 completed DAVID CANDACE null, PA - [facility] 11/09/2022 10:02:44 Influenza, high-dose, trivalent, PF 9 completed DAVID CANDACE null, PA - [facility] 11/09/2022 10:02:44 Influenza, high-dose, trivalent, PF 8 completed DAVID CANDACE null, PA - [facility] 11/09/2022 10:02:44 Influenza, high-dose, trivalent, PF 1 completed DAVID CANDACE null, PA - [facility] 11/09/2022 10:02:44 Influenza, split virus, trivalent, preservative 5 completed DAVID CANDACE null, PA - [facility] 11/09/2022 10:02:44 Influenza, split virus, trivalent, preservative 4 completed DAVID CANDACE null, PA - [facility] 11/09/2022 10:02:44 Past Encounters Encounter ID Performer Location Encounter Start Date Encounter Closed Date Diagnosis/Indication Diagnosis SNOMED-CT Code Diagnosis ICD10 Code Diagnosis IMO Codes Diagnosis Note [id number] [facility] [address] [place] [id number] 11/17/2019 14:37:35 11/17/2019 15:43:27 [id number] [address] [facility] [address] [place] [id number] 03/30/2021 09:16:59 03/30/2021 12:07:44 [id number] [address] [address] [place] [phone] 01/05/2021 10:39:14 01/05/2021 12:26:24 [id number] [address] [address] [place] [id number] 02/10/2018 19:31:31 02/10/2018 20:28:16 [id number] Kylah casanova [place] [address] [address] [place] [id number] 05/08/2022 17:17:00 05/08/2022 18:37:36 Acute pharyngitis 633440303 J02.9 [id number] T[facility]NER [facility]man [address] [address] [place] [id number] 11/09/2022 08:44:12 11/09/2022 10:52:26 Contact dermatitis 16622134 L25.9 [id number] [facility] [address] [place] [address] 12/31/2022 16:04:32 12/31/2022 17:13:07 Localized eruption of skin 451190235 R21 [id number] JESUS FONTAINE MD [address] [facility] [place] [address] 02/11/2024 12:03:46 02/11/2024 13:40:51 Cellulitis of left upper limb 2817839653 [id number] L03.114 Health Concerns Section Related Observation LastModified by Organization Detai ls LastModified Time None Recorded Concern Status LastModified by Organization Details LastModified Time None Recorded Advance Directives Directive None Recorded Payers Insurance Date Sequence Insurance Name Policy Number Policy Newberry Covered Member ID Newberry Member ID Guarantor Name 02/11/2024 1 MEDICARE B-[place]: [employer] Kym Chand Trell [id number] Kym A Trell 02/11/2024 2 () Kym Jagruti Trell [id number] Kym Jagruti Trell Notes Date Note Type Note Provider Name and Address Organization Details Recorded Time 2 text/html Sore throatReported by PatientSore ThroatFor location, patient reportsthroat. For severity, patient reportsmild. For quality, patient reportshurts to swallow. For onset/timing, patient reports1 days. For associated symptoms, patient reportsno cough,no shortness of breath,no wheezing,no sinus pain,no vomiting,no nausea, andno hoarseness.ROS as noted in the HPI Kylah Cherry MD [address] [place], [address], [place] - [facility] 05/08/2022 20:50:07 3 text/html Skin Redness UCReported by PatientSkin Redness UCFor quality, patient reportspainful,burnin g,erythematous, anditchy. For location, patient reportsbilateral legs. For severity, patient reportsimproving. For onset, patient reportsgradual onset. For symptoms, patient reportsno fever,no nausea,no vomiting, andno swelling. TURNER Foley [address] [place], [address], [place] - [facility] 11/09/2022 10:45:54 3 text/html 72 y.o female pt presents with generalized pruritic rash on arms, chest, back, and both legs x 1 month. Pt has went to 2 different Dermatologists. They were not able provide any directions or help. Sent her to different clinic. Pt denies travel, new meds, fever or pain. TURNER HANDLEY [address] [place], [address], [place] - [facility] 12/31/2022 17:10:22 4 text/html 74 yo female c/o red, itchy, tender area on her left upper arm x 5 days. It started from a scratch she got while packing boxes. JESUS FONTAINE MD [address] [place], [address], [place] - [facility] 02/11/2024 16:49:08 OBGyn Episode No OBEpisode recorded.
[2025-03-23 15:51] LABS: CDIFF Internal ctrl Dots and bkg OK (V); CDiff Toxin Negative (Negative)
[2025-03-29 23:58] LABS: Calprotectin, Fecal 95 mcg/g
== END 2025-03-22 18:31 | disposition home or self-care (01) ==
LOC: HO.LNP 18:30
PROVIDERS: Visit Provider Nurse Practitioner Family
DX: R19.7 Diarrhea, unspecified (principal)
CPT/HCPCS: 82705; 83993; 87177; 87209; 87324; 87493; 87507

== ENCOUNTER 2025-03-23 12:07 | Outpatient (REF) | payer MEDICARE, OTHER, SELFPAY ==
--- OUTSIDE RECORDS SUMMARY | 2025-03-23 15:21 | XMS_ITS | Clinical Summary ---
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, partial mastectomy 01/18/2021 Internal hemorrhoids 07/26/2020 Hepatic steatosis 03/21/2020 Colon polyp 03/12/2019 Overview (07/11/2024): 2019, repeat colo 2028 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, [facility]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/13/19 19 Overview (07/11/2024): Onset [...] Description 02/08/2025 3:30 PM EDT Office Visit [address] [phone] Alesha Fierro MD History of partial mastectomy of left breast (Primary Dx); Inclusion body myositis (CMS/HCC V28); History of invasive breast cancer from Last 3 Months Immunizations Immunization Administration Dates Next Due Influenza trivalent, 0.5mL ( Fluad) 65yo and older 05/09/2021,03/23/2018,02/18/2017 Influenza trivalent, 0.5mL, preservative free (Fluarix; FluLaval; Fluzone) ages 6mo and older (Afluria) 3 years and older 03/15/2015,04/11/2014 [employer] SARS-CoV-2 COVID-19, mRNA, LNP-S, preservative free 09/15/2020,08/25/2020 [...] BIOPSY W/ LOOP ELECTRODE EXCISION 2009 PROCEDURE: [place] CONIZATION CERVIX W/WO D&C RPR ELTRD EXC; [...] 03/26/2016 DX:NSTEMI (non-ST elevated m yocardial infarction) ([facility]) History of basal cell carcinoma 03/05/2015 [...] PM EDT [facility] Visit [facility] [address] [phone] Alesha Fierro MD [address] [place] [phone] Health Maintenance Due Date Last Done [...] Results * Annual BMP Blood Test (05/10/2021) [facility] Annual BMP Blood Test ABSTRACTED [facility] Provider HEALTH MAINTENANCE Final Result * (ABNORMAL) Lipid panel (05/10/2021) [facility] LDL/HDL Ratio 4 0 - 4 Triglycerides 163(A) 0 - 150 mg/dL Cholesterol 179 0 - 200 mg/dL HDL 42 >=39 mg/dL LDL Cholesterol 105(A) 0 - 100 mg/dL Blood Venous blood specimen / Unknown [facility] Provider LAB BLOOD ORDERABLES Aarti l Result * Colonoscopy (06/21/2020) [facility] Colonoscopy no interpretation , abstracted Anatomical Region Laterality Modality Other [facility] Provider HEALTH MAINTENANCE Final Result * Hepatitis C Screening (07/13/2018) [facility] Hepatitis C Screening ABSTRACTED [facility] Provider HEALTH MAINTENANCE Final Result * DXA [...] Documents on File Type Date Recorded 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
--- OUTSIDE RECORDS SUMMARY | 2025-03-23 15:21 | XMS_ITS | Clinical Summary ---
Author Organization [facility] Address [address] [place] [phone] Phone Care Team Providers Care Senior Energy Analyst Name Role Phone Peter Al AVIATION SUPPORT EQUIPMENT REPAIRER Primary Care Provid er Allergies Active Allergy [...] Insurance MEDICARE PART A & [place] [address] MED[address]ARE PART A & B [facility] [place] [address] MEDICARE PART A & B [facility] [place] [address] MEDICARE PART A & [place] [facility] [place] [address] MEDICARE PART A & [place] [facility] [place] [address] MEDICARE PART A & [place] [address] MEDICARE PART A & [place] [address] MEDICARE PART A & [place] [address] MEDICARE PART A & [place] [address] Care Teams Senior Energy Analyst Relationship Specialty Start Date End Date Peter Al NP [address] [place] [phone] PCP - General Nurse Practitioner 08/27/22 Additional Source Comments The information contained in this document represents components of the legal health record. It is not the complete legal health record.[facility]
== END 2025-03-23 12:08 | disposition home or self-care (01) ==
LOC: HO.LNP 12:07
PROVIDERS: Visit Provider Nurse Practitioner Family
DX: Z13.89 Encounter for screening for other disorder (principal)

== ENCOUNTER 2025-05-30 12:55 | Outpatient (AMB) | payer MEDICARE, OTHER, SELFPAY ==
--- NOTE | 2025-05-30 13:07 | A.OFFVIS_ITS ---
Vital Signs 05/30/25 13:08 Height 5 ft 4 in Weight 174 lb BMI 29.9 BP 127/62 Blood Pressure Location Lt brachial Position Sitting Pulse 76 Intake Visit Reasons: follow up Intake Note: Patient follow up for Acid reflux, lab/fecal results. Patient cc: acid reflux on and off, occasional soft stool with some BM accident after eating. Log Preparer Required: No Accompanied by: Self / Same As Patient Allergies amoxicillin (From Augmentin) Allergy (Mild, Verified 05/30/25 13:07) Vomiting clavulanic acid (From Augmentin) Allergy (Mild, Verified 05/30/25 13:07) Vomiting HPI HPI follow up: Details: Patient is a 75-year-old female with PMH of hypertension. Follow-up of persistent gastrointestinal symptoms. She reports ongoing occasional abdominal discomfort, stool urgency after eating, and periodic diarrhea occurring every couple of weeks. Her stools are sometimes loose, consistent with Caswell stool chart type 6, and other times normal at type 4. She denies abdominal pain or blood in the stool. She experiences occasional nausea and had one episode of vomiting after eating shrimp. Her symptoms of heartburn and regurgitation from GERD are well-controlled on pantoprazole. 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 Relevant past history includes treatment for diverticulitis several months ago and a subsequent positive test for C. difficile, for which she was treated with vancomycin. Prior workup revealed mildly elevated ALT, negative celiac serology, normal fecal fat, and a borderline fecal calprotectin level. An abdominal CT scan in January showed her gallbladder was normal. 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 She is also followed by cardiology with follow up appt last months. [facility] Medical History (Updated 05/30/25 @ 13:47 by Madison Weston CNP) GERD with apnea Postprandial diarrhea Nausea Colon cancer screening Acid reflux Dysphagia Elevated LFTs Diarrhea HTN (hypertension) IBM (inclusion body myositis) Surgical History History of esophagogastroduodenoscopy (EGD) Hx of colonoscopy Hx of hernia repair History of lumpectomy Hx of tubal ligation Family History Father Oral cancer Mother Diabetes Social History Household Members: Family Alcohol intake: current Alcohol intake frequency: a few times a month Patient Tobacco Use Status: Tobacco use Unknown Review of Systems Const Reports as per HPI ENT Reports as per HPI Card Reports as per HPI Resp Reports as per HPI GI Reports as per HPI Reports as per HPI Physical Exam Vital Signs: BMI result Body Mass Index 29.9 Const General: healthy appearing, no acute distress and well developed Nutritional Appearance: average body habitus Orientation/consciousness: patient oriented x3 HEENT Head: Yes normal to inspection, Yes normocephalic and Yes atraumatic Face and sinus: Yes normal facial exam Eyes General: appearance normal, both eyes and all related structures Neck Neck: Yes normal visual inspection Resp Effort & Inspection: normal respiratory effort, able to speak in complete sentences, no tracheal deviation and symmetric chest movement Cardio Jugular venous distension: no JVD Neuro General: patient oriented x3 Gait exam (Neuro): Normal gait present Psych Appearance: grossly normal Mental Status: mental status grossly normal Speech and movement: Normal speech and movement present Affect: normal affect Attitude: cooperative Thought process: Normal thought process present Thought content: Normal thought content present Insight: Good insight present (Psych) Judgement: Good judgement present (Psych) Assessment & Plan Assessment & Plan (1) Postprandial diarrhea: Code(s): K52.9 - Noninfective gastroenteritis and colitis, unspecified Category: Medical Plan: The patient has persistent diarrhea and post-prandial urgency despite prior treatment for C. difficile infection. - The etiology is unclear, with differential diagnoses including post-infectious irritable bowel syndrome, gallbladder pathology given her occasional nausea, or colonic inflammation related to her underlying inclusion body myositis. - Repeat stool testing for GI pathogens, as some prior samples were inadequate for testing. - An abdominal ultrasound will be ordered to better evaluate the gallbladder, as a CT scan is less sensitive for this purpose. - Proceed with the pending colonoscopy to assess for underlying inflammation, for which cardiac clearance is required. - Defer repeating the fecal calprotectin test until after the colonoscopy (2) GERD with apnea: Code(s): K21.9 - Gastro-esophageal reflux disease without esophagitis; R06.81 - Apnea, not elsewhere classified Category: Medical Plan: The patient's heartburn is well-controlled. - Continue pantoprazole 20 mg daily. (3) Elevated LFTs: Code(s): R79.89 - Other specified abnormal findings of blood chemistry Category: Medical Plan: LFTs remain elevated. Known IBM hx, established with Rheumatology -Normal hepatic findings on 01/[address] Celiac serology negative -ab US ordered today for further evaluation as above. - will order additonal labs to futher assess health of liver Plan Follow-up after imaging/endoscopy or sooner as needed Time: I spent a total of 30 minutes on the date of encounter which includes: Preparing to see the patient (reviewed previous documentation, test results and medical history) Performing a medically appropriate exam and/or evaluation Ordering medications, tests, and procedures Documenting clinical information in the health record Orders: Orders GI Panel Today R19.7 - Diarrhea, unspecified CDiff Gene PCR Today R19.7 - Diarrhea, unspecified Hepatitis A,B,C Profile Today R79.89 - Other specified abnormal findings of blood chemistry Lipase Today R79.89 - Other specified abnormal findings of blood chemistry Ova and Parasite Today R19.7 - Diarrhea, unspecified US abdomen complete Today K52.9 - Noninfective gastroenteritis and colitis, unspecified, R11.0 - Nausea, R79.89 - Other specified abnormal findings of blood chemistry Ferritin Today R79.89 - Other specified abnormal findings of blood chemistry Prothrombin Time INR Today R79.89 - Other specified abnormal findings of blood chemistry Smooth Muscle Antibody Today R79.89 - Other specified abnormal findings of blood chemistry Hepatitis A IgG Today R79.89 - Other specified abnormal findings of blood chemistry Coding Level of Care Code Established Pt Est Pt Level 4 (03494) Patient Type Established Diagnoses Postprandial diarrhea K52.9 GERD with apnea K21.9; R06.81 Elevated LFTs R79.89
[2025-05-30 13:08] VITALS: BP 127/62; PULSE 76; BMI 29.9
--- OUTSIDE RECORDS SUMMARY | 2025-05-30 14:00 | XMS_ITS | Clinical Summary ---
Author Organization [facility] Address [address] [place] [address] Phone Care Team Providers Care Road Conductor Name Role Phone Peter Al VOCATIONAL REHABILITATION SUPERVISOR Primary Care Provid er Allergies Active Allergy [...] Insurance MEDICARE PART A [place] [address] MEDICARE PART A & [place] [address] MEDICARE PART A & [place] [address] MEDICARE PART A & [place] [address] MEDICARE PART A & [place] [address] MEDICARE PART A & [place] [address] MEDICARE PART A [place] [address] MEDICARE PART A & [place] [address] MEDICARE PART A & [place] [address] Conductor Relationship Specialty Start Date End Date Peter Al NP [address] [place] [address] PCP - General Nurse Practitioner 08/27/22 Additional Source Comments The information contained in this document represents components of the legal health record. It is not the complete legal health record.[facility]
--- OUTSIDE RECORDS SUMMARY | 2025-05-30 14:00 | XMS_ITS | Data Portability ---
Author Organization [facility], [address] Address [address] [place] [address] Care Team Providers Care Commercial Account Manager Name Role Phone [facility] Primary Care Pr ovider Assessment No assessment recorded. Plan of Treatment Reminders Order Date Submit Date Provider Last Modified By Organization Details Last Modified Time Details Appointments None recorded. Lab rapid strep group A, throat 2021 022 [facility], [address] [place] [address], [place], [address], 18:48:20 culture, throat 2021 022 [facility], [address] [place] [address], [place], [address], 18:04:08 Referral None recorded. Procedures None recorded. Surgeries None recorded. Imaging None recorded. Medication Orders Bactrim DS 800 mg-160 mg tablet 2023 024 DOMONIQUE [id number], [address] [place], [id number], 4 13:40:18 permethrin 5 % topical cream 2022 023 [facility]868[facility], [address] [place], [id number], 4 13:25:38 triamcinolo ne acetonide 0.1 % topical cream 2022 023 DOMONIQUE [facility]11711, [address] [place], [id number], 3 10:42:30 hydroxyzine HCl 25 mg tablet 2022 023 DOMONIQUE [facility] #19583, [address] [place], [id number], 3 10:42:30 amoxicillin 875 mg tablet 2021 022 [email or web address], [address] [place], [id number], 10:02:59 Patient TargetsNo targets recorded. Patient Instructions Encounter Date Encounter Id Patient Instructions Last Modified By Organization Details Last Modified Time 05/08/2022 [id number] sore throat: car e instructions [email or web address] Not available 05/08/2022 18:48:20 11/09/2022 [id number] dermatitis: care instructions Not available 11/09/2022 10:42:23 [...] as needed Not available 11/09/2022 10:45:38 12/31/2022 [id number] scabies: care instructions [email or web address] Not available 12/31/2022 17:05:54 Take medication as directed. Follow up with Primary DR for recheck. Return for new or worsening symptoms. [email or web address] Not available 12/31/2022 17:06:40 02/11/2024 [id number] Cellulitis is a skin infection caused by [...] your doctor if you can take an afki-ych-tnshzgv medicine. [email or web address] Not available 02/11/2024 13:40:06 Reason for Referral None Reported. Results Created Date Observation Date Name Description Value Unit Range Abnormal Flag Note LastModifiedBy Organization Detail LastModifiedTime 05/08/20 22 05/13/2022 BETA STREP GP A CULTU RE beta strep gp A culture Negati ve Refer ence Range : Negat messi Not Available [facility] ([facility]) [address] [place], [address], 05/13/2022 14:06:46 05/08/2005/09/2022 TEST CODE THU Melo test code change Malissa Madera note that the Micro biolo gy test code was thu chao to refle ct the speci men sourc e or trans port recei diandra. Not Available [facility] ([facility]) [address] [place], [address], 05/12/2022 14:06:03 05/08/20 22 05/08/2022 rapid strep group A, throa t Unknown Analyte Normal = Negati ve Not Available [address] [facility] [address] [place] [address], [address], 05/08/2022 17:32:52 05/08/20 22 05/08/2022 rapid strep group A, throa t Unknown Analyte negati ve Not Available [address], [address], 05/08/2022 17:32:52 Result Notes None recorded. Problems Name Problem SNOMED Code Status Onset Date Resolution Date Notes Provider Name and Address Organization Details Recorded Time Polymyositis 38373220 Active 2021 EFFIE LOYA null, [place] - [facility] 2 17:37:59 Interstitial lung disease 371443440 Active 2021 EFFIE LOYA null, [place] - [facility] 2 17:38:13 Hypertensive disorder 55111977 Active 2021 EFFIE LOYA null, [place] - [facility] 2 17:38:29 Anxiety 12442162 Active 2021 EFFIE LOYA null, [place] - [facility] 2 17:38:34 Depressive disorder 57356045 Active 2021 EFFIE LOYA null, [place] - [facility] 2 17:38:40 Chronic obstructive pulmonary disease 00882931 Active 2021 EFFIE LOYA null, [place] - [facility] 2 17:38:51 Gastroesophage al reflux disease 013174537 Active 2021 EFFIE LOYA null, [place] - [facility] 2 17:39:16 Malignant neoplasm of breast 883566703 Active 2021 EFFIE LOYA null, [place] - [facility] 2 17:39:42 Basal cell carcinoma of skin 784092562 Active 2021 EFFIE aponte, [facility] - [facility] [...] n vomiting Not available Not available 05/08/2022 51670 2 RxNorm EFFIE aponte, [place] - [facility] 2 17:33:56 1886 Dolobid medicatio n other Not available Not available 05/08/202221359 6 RxNorm EFFIEMALACHI aponte, [place] - [facility] [...] tablet TAKE 4 TABLETS BY MOUTH DAILY G2MQCTV TAKE 3 TABLETS DAILY T1UWZCS TAKE 2 TABLETS DAILY V7OXCVQ TAKE 1 TABLET DAILY P3KTXTZ 05/08 completed Not Available Not Available Not [...] ON TOPICALLY TWICE DAILY TO AFFECTED AREA [id number] 05/08 completed Not Available Not Available Not [...] numeric rating [Score] - Reported Oxygen saturation Heart rate Respiratory rate Body temperature Systolic And Diastolic Provider Name and Address Organization Details Last Updated DateTime 3 160.02 cm 30.5 kg/m2 10381.8 9 g 5 95 % 60 /min 18 /min 98 [degF] 117/57 mm[Hg] DAVID MARIA PA - [facility] 3 10:07:14 Date Recorded Body height Provider Name an d Address Organization Details Last Updated DateTime 12/31/2022 160.02 cm Marianela Navarro PA - [facility] 12/31/2022 16:33:26 Date Recorded Body height Body mass index (BMI) Body weight Body temperature Respiratory rate Oxygen saturation Heart rate Systolic And Diastolic Provider Name and Address Organization Details Last Updated DateTime 4 160.02 cm 30.5 kg/m2 77864.8 9 g 98.4 [degF] 18 /min 97 % 57 /min 159/76 mm[Hg] Rosey Galvan PA - [facility] 4 13:27:06 Date Recorded Body weight Body mass index (BMI) Body height Oxygen saturation Heart rate Respiratory rate Body temperature Systolic And Diastolic Provider Name and Address Organization Details Last Updated DateTime 2 52747.0 7 g 30.8 kg/m2 160.02 cm 97 % 69 /min 18 /min 97.9 [degF] 166/81 mm[Hg] EFFIE LOYA PA - [facility] 2 17:42:44 Social History Question Answer Notes LastModified by Organizat ion Details LastModified Time Tobacco Smoking Status Former Smoker EFFIE LOYA fay, [place] - [facility] 05/08/2022 17:41:09 When Did You Quit Smoking? 16+yearssinc elastcigaret te [email or web address] Information not available 05/08/2022 Have You Recently Traveled Abroad? No [email or web address] Information not available 05/08/2022 Sex: Unknown Functional Status Question Answer Note LastModified by Organizat ion Details LastModified Time Do you use any illicit or recreational drugs? No [email or web address] Information not available 05/08/2022 Do you or have you ever used any other forms of tobacco or nicotine? No [email or web address] Information not available 05/08/2022 What is your level of alcohol consumption? Occasional [email or web address] Information not available 05/08/2022 Are you currently employed? No [email or web address] Information not available 11/09/2022 Mental Status None recorded. Family History Relationship Description Onset Age of this Age Resolved Age Notes LastModified by Organization Details LastModified Time Father No current problems or disability [email or web address] Not available 05/08 17:40:40 Mother No current problems or disability [email or web address] Not available 05/08 17:40:40 Medical History No medical history recorded. Gynecological HistoryNo gynecological history recorded. Obstetrics History GPAL:G 0 P 0 0 0 0 Immunizations Vaccine Type Date Status Note Provider Nam e and Address Organization Details Recorded Time zoster recombinant 8 completed DAVDI CANDACE null, [place] - [facility] 11/09/2022 [...] ICD10 Code Diagnosis IMO Codes Diagnosis Note [id number] [address] [place] [address] 11/17/2019 14:37:35 11/17/2019 15:43:27 [id number] [address] [place] [address] 03/30/2021 09:16:59 03/30/2021 12:07:44 [id number] [address] [place] [address] 01/05/2021 10:39:14 01/05/2021 12:26:24 [id number] [address] [place] [address] 02/10/2018 19:31:31 02/10/2018 20:28:16 [id number] Kylah casanova MD [address] [place] [address] 05/08/2022 17:17:00 05/08/2022 18:37:36 Acute pharyngitis 203511812 J02.9 [id number] [facility] Lieberman [address] [place] [address] 11/09/2022 08:44:12 11/09/2022 10:52:26 Contact dermatitis 83295997 L25.9 [id number] [facility] [address] [place] [address] 12/31/2022 16:04:32 12/31/2022 17:13:07 Localized eruption of skin 306806359 R21 [id number] JESUS FONTAINE MD [address] [place] [address] 02/11/2024 12:03:46 02/11/2024 13:40:51 Cellulitis of left upper limb 4818554382 6790085 L03.114 Health Concerns Section Related Observation LastModified by Organization Detai ls LastModified Time None Recorded Concern Status LastModified by Organization Details LastModified Time None Recorded Advance Directives Directive None Recorded Payers Insurance Date Sequence Insurance Name Policy Number Policy Newberry Covered Member ID Newberry Member ID Guarantor Name 02/11/2024 1 [place]ICARE [place]: [employer] Kym Chand Trell [id number] Kym Chand Trell 02/11/2024 2 () Kym Chand Trell [id number] Kym Chand Trell Notes Date Note Type Note Provider [...] Kylah Cherry MD [address] [place], [address], [facility] 05/08/2022 20:50:07 3 text/html Skin Redness UCReported by PatientSkin Redness UCFor quality, patient reportspainful,burnin g,erythematous, anditchy. For location, patient reportsbilateral legs. For severity, patient reportsimproving. For onset, patient reportsgradual onset. For symptoms, patient reportsno fever,no nausea,no vomiting, andno swelling. TURENR Foley [address] [place], [address], [place] [facility] 11/09/2022 10:45:54 3 text/html 72 y.o female pt presents with generalized pruritic rash on arms, chest, back, and both legs x 1 month. Pt has went to 2 different Dermatologists. They were not able provide any directions or help. Sent her to different clinic. Pt denies travel, new meds, fever or pain. TURNER HANDLEY [address] [place], [address], [place] [facility] 12/31/2022 17:10:22 4 text/html 74 yo female c/o red, itchy, tender area on her left upper arm x 5 days. It started from a scratch she got while packing boxes. JESUS FONTAINE MD [address] [place], [address], [facility] 02/11/2024 16:49:08 OBGyn Episode No OBEpisode recorded.
--- OUTSIDE RECORDS SUMMARY | 2025-05-30 14:00 | XMS_ITS | Clinical Summary ---
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 CPKs elevated [...] EF 62% Osteopenia 07/06/2013 Psoriasis 07/06/2013 Immunizations Immunization Administration Dates Next Due Influenza trivalent, 0.5mL ( Fluad) 65yo and older 05/09/2021,03/23/2018,02/18/2017 Influenza trivalent, 0.5mL, preservative free (Fluarix; FluLaval; Fluzone) ages 6mo and older (Afluria) 3 years and older 03/15/2015,04/11/2014 [facility] SARS-CoV-2 COVID-19, mRNA, LNP-S, preservative free 09/15/2020,08/25/2020 [...] 03/26/2016 DX:NSTEMI (non-ST elevated m yocardial infarction) ([facility]) History of basal cell carcinoma [...] Years Used Date Smoking Tobacco: Former Cigarettes 1.5 Q uit: 06/08/1993 Smokeless Tobacco: Never Alcohol [...] 1:45 PM EDT Office Visit Breast Care [address] [phone] Alesha Fierro MD [address] [place] [phone] Health Maintenance Due Date Last Done Comments Drug Screen 1950 Non-Opioid Controlled Substance Agreement 1950 Falls Risk Assessment 05/17/2022 Social Influencers of [...] Results * Annual BMP Blood Test (05/10/2021) Pathologist [facility] Annual BMP Blood Test ABSTRACTED [facility] Provider HEALTH MAINTENANCE Final Result * (ABNORMAL) Lipid panel (05/10/2021) [facility] LDL/HDL Ratio 4 0 - 4 Triglycerides 163(A) 0 - 150 mg/dL Cholesterol 179 0 - 200 mg/dL HDL 42 >=39 mg/dL LDL Cholesterol 105(A) 0 - 100 mg/dL Blood Venous blood specimen / Unknown [facility] Provider LAB BLOOD ORDERABLES Aarti l Result * Colonoscopy (06/21/2020) [facility] Colonoscopy no interpretation , abstracted Anatomical Region Laterality Modality Other [facility] Provider HEALTH MAINTENANCE Final Result * Hepatitis C Screening (07/13/2018) [facility] Hepatitis C Screening ABSTRACTED [facility] Provider [facility] Final Result * DXA BONE DENSITY STUDY [...] (World Health Organization Fracture Risk Assessment) [facility] Department of Internal Medicine recommends [...] (World Health Organization Fracture Risk Assessment) [facility] Department of Internal Medicine recommendsusing [...] or over-estimation of fracture risk by FRAX. iLz Laws MD IMG DXA PROCEDURES F inal [...] Documents on File Type Date Recorded Patient Roller Gold Leaf Expl anation Health Care Decision (hx) 01/21/2021 [...] (hx) 01/11/2015 AD UPTON DIRECTIVE Care Teams Humidifier Operator Relationship Specialty Start Date End Date Rakan Draper DO PCP - General Internal Medicine 06/20/21
== END 2025-05-30 13:42 | disposition home or self-care (01) ==
LOC: HO.HGI 12:56
PROVIDERS: PCP Nurse Practitioner Family; Visit Provider Nurse Practitioner Family
DX: K52.9 Noninfective gastroenteritis and colitis, unspecified (principal); K21.9 Gastro-esophageal reflux disease without esophagitis; R06.81 Apnea, not elsewhere classified; R79.89 Other specified abnormal findings of blood chemistry
CPT/HCPCS: 99214

== ENCOUNTER → 2025-05-30 12:55 | Outpatient (BNVA) | payer MEDICARE, OTHER, SELFPAY | PROVIDERS: PCP Nurse Practitioner Family; Visit Provider Nurse Practitioner Family | DX: K52.9 Noninfective gastroenteritis and colitis, unspecified (principal); K21.9 Gastro-esophageal reflux disease without esophagitis; R79.89 Other specified abnormal findings of blood chemistry | CPT/HCPCS: 99212 ==